=== PATIENT | female | born 1960 | race Hispanic/Latino ===

== ENCOUNTER 2018-02-23 12:15 | Emergency (ER) | payer OTHER ==
[2018-02-23] MEDS ORDERED: MEPERIDINE HCL 50 MG/ML AMP ONE (15:33)
[2018-02-23] MEDS ORDERED: ONDANSETRON 4 MG/2 ML VIAL ONE (15:33)
[2018-02-23 15:54] LABS: Potassium 4.4 mmol/L (3.5-5.1)
[2018-02-23 15:59] LABS: Absolute Lymphocytes (CBC) 2.7 K/uL (0.7-4.9); Absolute Monocytes 0.4 K/uL (0.1-1.3); Absolute Neutrophil 4.9 K/uL (1.8-8.0); Basophils % 0.7 % (0-1.3); Lymphocytes % 33.4 % (15.3-44.8); MCV 85.8 fL (80-100); MPV 8.3 fL (7.6-11.3); Monocytes % 4.6 % (3.3-12.3); RBC Red Blood Cell Count 5.37 M/uL (3.86-4.86)
--- NOTE | 2018-02-23 16:42 | RAD REPORT ---
EXAM DESCRIPTION: CTAbdomen Pelvis W Contrast - 02/23/2018 4:29 pm CLINICAL HISTORY: Abdominal pain. IV contrast only, LLQ pain and flank pain to hip;Abd pain COMPARISON: Abdomen Pelvis W Contrast dated 07/11/2016 TECHNIQUE: Biphasic CT imaging of the abdomen and pelvis was performed with 100 ml non-ionic IV cont rast. All CT scans are performed using dose optimization technique as appropriate and may include automated exposure control or mA/KV adjustment according to patient size. FINDINGS: The lung bases are clear. Diffuse fatty liver is present. Cholecystectomy clips are seen. The spleen, pancreas, adrenal glands and kidneys are within normal limits. No bowel obstruction, free air, free fluid or abscess. Moderate stool is present in the colon. The ap pendix is normal. No evidence of significant lymphadenopathy. No suspicious bony findings. IMPRESSION: No acute intra-abdominal or pelvic finding.
--- NOTE | 2018-02-23 17:28 | ER ---
Nurse's Notes [facility] Name: Cesia Rai Age: 58 yrs Sex: Female : 1960 Arrival Date: 02/23/2018 Time: 12:16 Bed 17 Private MD: Lobito Angel V Diagnosis: Pain in left hip Presentation: 02/23 12:29 Presenting complaint: Patient states: Left sided low back pain that radiates to left hb leg x 3 days. Hx sciatica, takes Percocet, feels like this pain is different than her typical pain. Denies recent injury. Transition of care: patient was not received from another setting of care. Onset of symptoms is unknown. Risk Assessment: Do you want to hurt yourself or someone else? Patient reports no desire to harm self or others. 12:29 Method Of Arrival: Ambulatory 12:29 Acuity: LUIS 4 hb 14:59 Initial Sepsis Screen: Does the patient meet any 2 criteria? No. Patient's initial hj sepsis screen is negative. Does the patient have a suspected source of infection? No. Patient's initial sepsis screen is negative. Care prior to arrival: None. Triage Assessment: 14:58 General: Appears in no apparent distress. uncomfortable, Behavior is calm, cooperative, hj appropriate for age. Pain: Complains of pain in back and left leg. Historical: - Allergies: 12:32 GABAPENTIN; hb 12:32 Morphine; hb - PMHx: 12:32 Diabetes - NIDDM; necrotizing fascitis; neuropathy; Seizures; hb - Immunization history:: Adult Immunizations up to date. - Social history:: Smoking status: Patient/guardian denies using tobacco. - Ebola Screening: : No symptoms or risks identified at this time. - Family history:: not pertinent. - Hospitalizations: : No recent hospitalization is reported. Screenin:58 Abuse screen: Denies threats or abuse. Denies injuries from another. Nutritional hj screening: No deficits noted. Tuberculosis screening: No symptoms or risk factors identified. Fall Risk None identified. Assessment: 15:31 Reassessment: Patient and/or family updated on plan of care and expected duration. Pain hj level reassessed. Patient is alert, oriented x 3, equal unlabored respirations, skin warm/dry/pink. see triage for assessment;. 16:04 Reassessment: Patient and/or family updated on plan of care and expected duration. Pain hj level reassessed. Patient is alert, oriented x 3, equal unlabored respirations, skin warm/dry/pink. Patient states feeling better. Patient states symptoms have improved. 17:21 Reassessment: Patient and/or family updated on plan of care and expected duration. Pain hj level reassessed. Patient is alert, oriented x 3, equal unlabored respirations, skin warm/dry/pink. complaints of pain, MD notified; awaiting orders;. Vital Signs: 12:32 BP 134 / 78; Pulse 78; Resp 16; Temp 98.1; Pulse Ox 100% on R/A; Pain 10/10; hb 14:59 BP 133 / 87; Pulse 65; Resp 18; Pulse Ox 97% on R/A; hj 16:33 BP 130 / 79; Pulse 75; Resp 18; Pulse Ox 100% on R/A; hj 17:21 BP 128 / 78; Pulse 76; Resp 18; Pulse Ox 100% on R/A; hj ED Course: 12:16 Patient arrived in ED. sb2 12:17 Lobito Angel MD is Private Physician. sb2 12:31 Triage completed. hb 12:32 Arm band placed on right wrist. hb 14:53 Devan Motta, RN is Primary Nurse. hj 14:57 Sanjay Dueñas MD is Attending Physician. rn 14:59 Patient has correct armband on for positive identification. Placed in gown. Bed in low hj position. Call light in reach. Side rails up X 1. Adult w/ patient. 15:15 Initial lab(s) drawn, by me, sent to lab. Inserted saline lock: 22 gauge in left hj forearm, using aseptic technique. Blood collected. 15:21 Radiology exam delayed due to lab results not completed at this time. (BUN/Creatinine). sw 16:[address] via wheelchair. nj 16:29 CT completed. Patient tolerated procedure well. Patient moved back from CT. nj 16:29 CT Abd/Pelvis - W/Contrast In Process Unspecified. EDMS 17:27 Lobito Angel MD is Referral Physician. rn 17:54 No provider procedures requiring assistance completed. IV discontinued, intact, ss bleeding controlled, No redness/swelling at site. Pressure dressing applied. Administered Medications: 15:15 Drug: Zofran 4 mg Route: IVP; Site: left forearm; hj 16:28 Follow up: Response: No adverse reaction hj 15:15 Drug: Demerol 50 mg Route: IVP; Site: left forearm; hj 16:28 Follow up: Response: No adverse reaction; Pain is decreased hj Outcome: 17:27 Discharge ordered by . rn 17:54 Discharged to home ambulatory, with family. ss 17:54 Condition: good 17:54 Discharge instructions given to patient, family, Instructed on discharge instructions, follow up and referral plans. medication usage, Demonstrated understanding of instructions, follow-up care, medications. 17:55 Patient left the ED. ss Signatures: Dispatcher [employer] EDMS Sanjay Dueñas MD MD rn Smirch, Shelby, RN RN ss Warren, Shannon sw Joaquin, Henry, RN RN hj Baxter, Heather, RN RN hb Jordan, Nathan nj Billeau, Sheri sb2 Corrections: (The following items were deleted from the chart) 12:33 12:29 Acuity: LUIS 3 hb hb
--- NOTE | 2018-02-23 17:28 | EDPHYS ---
Physician Documentation [facility] Name: Cesia Rai Age: 58 yrs Sex: Female : 1960 Arrival Date: 02/23/2018 Time: 12:16 Bed 17 Private MD: Lobito Angel V ED Physician Sanjay Dueñas HPI: 02/23 15:55 This 58 yrs old Female presents to ER via Ambulatory with complaints of Low rn Back Pain. 17:20 This 58 yrs old Female presents to ER via Ambulatory with complaints of left rn hip pain. 17:20 The patient presents with pain that is chronic, with no known mechanism of injury. rn 17:22 The patient or guardian reports pain. sustained from unknown reason, There is no rn obvious deformity, The patient is able to self ambulate. The patient is able to bear their full body weight. The patient's discomfort radiates to the abdomen. Onset: The symptoms/episode began/occurred 2 week(s) ago. Modifying factors: The symptoms are alleviated by nothing, the symptoms are aggravated by any movement, weight bearing. Severity of symptoms: At their worst the symptoms were moderate, in the emergency department the symptoms have improved. The patient has experienced similar episodes in the past. Has had left hip/leg pain since previous hip surgery > 1 year ago, worse pain over last 2 weeks, no trauma, no fever, no skin changes, no rashes, reports sometimes has pain with walking. Has had neg MRI lumbar spine 2 weeks ago, has been evaluated for this pain by pcp. . Historical: - Allergies: 12:32 GABAPENTIN; hb 12:32 Morphine; hb - PMHx: 12:32 Diabetes - NIDDM; necrotizing fascitis; neuropathy; Seizures; hb - Immunization history:: Adult Immunizations up to date. - Social history:: Smoking status: Patient/guardian denies using tobacco. - Ebola Screening: : No symptoms or risks identified at this time. - Family history:: not pertinent. - Hospitalizations: : No recent hospitalization is reported. ROS: 17:22 Constitutional: Negative for fever, chills, and weight loss, Eyes: Negative for injury, rn pain, redness, and discharge, Abdomen/GI: Negative for abdominal pain, vomiting, diarrhea, and constipation, Back: Negative for injury and pain, MS/Extremity: Negative for injury and deformity, Skin: Negative for injury, rash, and discoloration, Neuro: Negative for headache, weakness, numbness, tingling, and seizure. Exam: 17:22 Constitutional: This is a well developed, well nourished patient who is awake, alert, rn and in no acute distress. Head/Face: Normocephalic, atraumatic. Abdomen/GI: soft, non-tender Skin: Warm, dry with normal turgor. Normal color with no rashes, no lesions, and no evidence of cellulitis. MS/ Extremity: Pulses equal, no cyanosis. Neurovascular intact. Full, normal range of motion. Equal circumference. Neuro: Awake and alert, Motor strength 5/5 in all extremities. Sensory grossly intact. Vital Signs: 12:32 BP 134 / 78; Pulse 78; Resp 16; Temp 98.1; Pulse Ox 100% on R/A; Pain 10/10; hb 14:59 BP 133 / 87; Pulse 65; Resp 18; Pulse Ox 97% on R/A; hj 16:33 BP 130 / 79; Pulse 75; Resp 18; Pulse Ox 100% on R/A; hj 17:21 BP 128 / 78; Pulse 76; Resp 18; Pulse Ox 100% on R/A; hj MDM: 14:57 Patient medically screened. rn 17:22 Differential diagnosis: bursitis, arthritis, strain. Data reviewed: vital signs, nurses rn notes, lab test result(s), radiologic studies, CT scan, and as a result, I will discharge patient. Counseling: I had a detailed discussion with the patient and/or guardian regarding: the historical points, exam findings, and any diagnostic results supporting the discharge/admit diagnosis, lab results, radiology results, the need for outpatient follow up, to return to the emergency department if symptoms worsen or persist or if there are any questions or concerns that arise at home. Response to treatment: the patient's symptoms have mildly improved after treatment, and as a result, I will discharge patient. Special discussion: I discussed with the patient/guardian in detail that at this point there is no indication for admission to the hospital. It is understood, however, that if the symptoms persist or worsen the patient needs to return immediately for re-evaluation. Based on the history and exam findings, there is no indication for further emergent testing or inpatient evaluation. I discussed with the patient/guardian the need to see the back specialist for further evaluation of the symptoms. I discussed with the patient/guardian the need to see the painter hand for further evaluation of the symptoms. 02/23 15:13 Order name: Basic Metabolic Panel; Complete Time: 16:36 rn 02/23 15:13 Order name: CBC with Diff; Complete Time: 16:36 rn 02/23 15:13 Order name: Creatinine for Radiology; Complete Time: 16:36 rn 02/23 15:13 Order name: CT Abd/Pelvis - W/Contrast; Complete Time: 16:52 rn 02/23 15:13 Order name: IV Saline Lock; Complete Time: 15:31 rn 02/23 15:13 Order name: Labs collected and sent; Complete Time: 15:31 rn Administered Medications: 15:15 Drug: Zofran 4 mg Route: IVP; Site: left forearm; hj 16:28 Follow up: Response: No adverse reaction 15:15 Drug: Demerol 50 mg Route: IVP; Site: left forearm; hj 16:28 Follow up: Response: No adverse reaction; Pain is decreased Disposition: 02/23/18 17:27 Discharged to Home. Impression: Pain in left hip. - Condition is Stable. - Discharge Instructions: Musculoskeletal Pain, Pain Without a Known Cause, Hip Pain. - Medication Reconciliation Form, Thank You Letter, Antibiotic Education, Prescription Opioid Use form. - Follow up: Lobito Angel MD; When: As needed; Reason: Recheck today's complaints, Re-evaluation by your physician. - Problem is new. - Symptoms have improved. Signatures: Dispatcher [employer] EDLA Sanjay Dueñas MD MD rn Smirch, Shelby, RN RN Devan Motta RN RN Donna Clemente RN RN Corrections: (The following items were deleted from the chart) 17:55 17:27 02/23/2018 17:27 Discharged to Home. Impression: Pain in left hip. Condition is ss Stable. Forms are Medication Reconciliation Form, Thank You Letter, Antibiotic Education, Prescription Opioid Use. Follow up: Lobito Angel; When: As needed; Reason: Recheck today's complaints, Re-evaluation by your physician. Problem is new. Symptoms have improved. rn
[2018-02-23 18:59] VITALS: TEMP 98.1
[2018-02-23 19:01] VITALS: O2SAT 100
[2018-02-23 19:02] VITALS: BP 128/78
== END 2018-02-23 17:55 | disposition home or self-care (01) ==
LOC: ER 12:15
DX: M25.552 Pain in left hip (principal); Z88.5 Allergy status to narcotic agent; Z88.8 Allergy status to other drugs, medicaments and biological substances
CPT/HCPCS: 36415; 74177; 80048; 85025; 96374; 96375; 99284; J2175; J2405; Q9967

== ENCOUNTER 2018-08-17 16:34 | Observation (INO) | payer OTHER ==
--- OUTSIDE RECORDS SUMMARY | 2018-08-17 16:36 | XMS REPORT | Clinical Summary ---
:1960 Author Organization [facility] Address [address] [place] [address] Care Team Providers Name Role Phone Lobito Angel MD Primary Care Provider Allergies Active Allergy Reactions Severity Noted Date Comments Gabapentin Palpitations Low 04/23/2018 Morphine Hives 04/23/2018 Medications Medication Sig Dispensed Refills Start Date End Date Status baclofen (LIORESAL) 10 MG 0 02/20/2018 Active tablet cyclobenzaprine 0 08/14/2017 Active (FLEXERIL) 10 mg tablet diclofenac (VOLTAREN) 75 Take 75 mg by 0 03/13/2018 Active MG EC tablet mouth. fentaNYL (DURAGESIC) 25 0 01/31/2018 Active mcg/hr fentaNYL (DURAGESIC) 50 0 08/14/2017 Active mcg/hr NOVOLIN 70/30 U-100 0 03/11/2018 Active INSULIN 100 unit/mL (70-30) injection levothyroxine (SYNTHROID, 0 05/31/2017 Active LEVOXYL) 150 mcg tablet promethazine (PHENERGAN) 0 07/09/2017 Active 25 MG tablet rosuvastatin (CRESTOR) 5 Take 5 mg by 0 Active MG tablet mouth. oxyCODone-acetaminophen Take 1 tablet 0 Active (PERCOCET) 10-325 mg per by mouth. tablet Hospital, Clinic, or Other Ordered Dose Route Frequency Start Date End Date Status Facility Administered Medication methylPREDNISolone acetate 80 mg IAtc once 04/23/2018 Active (DEPO-MEDROL) injection 80 mgIndications: Trochanteric bursitis of right hip Active Problems Problem Noted Date Meralgia paresthetica of left side 05/08/2018 Resolved Problems Problem Noted Date Resolved Date Trochanteric bursitis of right hip 04/23/2018 05/08/2018 Encounters Date Type Specialty Care Team Description 05/08/2018 Office Visit Sports Medicine Jd Miller Meralgia paresthetica of left side (Primary Dx); MD Courtney Trochanteric bursitis of left hip 05/08/2018 Orders Only Sports Medicine ProviderWest MD 04/23/2018 Hospital Encounter Radiology Conrad Reece MD 04/23/2018 Office Visit Orthopedic Surgery Conrad Reece Trochanteric bursitis MD Misael of right hip (Primary Dx) 04/20/2018 Orders Only Orthopedic Surgery Cami Crowell, Pain of left hip MA joint (Primary Dx) after 08/16/2017 Family History Medical History Relation Name Comments Diabetes Father Camilo Relation Name Status Comments Father Camilo Social History Tobacco Use Types Packs/Day Years Used Date Former Smoker Smokeless Tobacco: Never Used Alcohol Use Drinks/Week oz/Week Comments No Sex Assigned at Date Recorded Not on file Job Start Date Occupation Industry Not on file Not on file Not on file Travel History Travel Start Travel End No recent travel history available. Last Filed Vital Signs Vital Sign Reading Time Taken Blood Pressure - - Pulse - - Temperature - - Respiratory Rate - - Oxygen Saturation - - Inhaled Oxygen Concentration - - Weight 112 kg (247 lb) 04/23/2018 2:06 PM NEWS REPORTER Height 154.9 cm (5' 1") 04/23/2018 2:06 PM NEWS REPORTER Body Mass Index 46.67 04/23/2018 2:06 PM NEWS REPORTER Plan of Treatment Health Maintenance Due Date Last Done Comments CERVICAL CANCER SCREENING 1983 BREAST CANCER SCREENING 02/14/2012 COLON CANCER SCREENING 02/14/2012 SHINGLES VACCINES (#1) 02/14/2012 INFLUENZA VACCINE 12/24/2017 Procedures Procedure Name Priority Date/Time Associated Diagnosis Comments MRI LOWER EXTREMITY Routine 05/08/2018 JOINT WO CONTRAST LEFT XR HIP 2-3 VIEWS LEFT Routine 04/23/2018 2:12 Pain of left hip Results for this PM NEWS REPORTER joint procedure are in the results section. [place] ARTHROCENTESIS Routine 04/23/2018 2:00 Trochanteric Results for this ASPIR&/INJ MAJOR PM NEWS REPORTER bursitis of right procedure are in JT/BURSA W/O US hip the results section. MRI LOWER EXTREMITY Routine 03/04/2018 11:55 Results for this EXTERNAL STUDY AM CDT procedure are in the results section. after 08/16/2017 Results MRI Lower Extremity Joint Wo Contrast Left (05/08/2018) Narrative Performed At XR Hip 2-3 View Left (04/23/2018 2:12 PM NEWS REPORTER) Narrative Performed At No evidence of degenerative changes. Joint space is well maintained. There RADIANT are no fractures or lesions present. Performing Organization Address [facility] Phone Number [facility] [address] [place] [address] Large Joint Arthrocentesis: hip, L greater trochanteric bursa (04/23/2018 2:00 PM NEWS REPORTER) Narrative Performed At Conrad Reece MD 04/24/20189:25 AM Large Joint Arthrocentesis: hip, L greater trochanteric bursa Consent given by: patient Site marked: site marked Timeout: Immediately prior to procedure a time out was called to verify the correct patient, procedure, equipment, passport support manager and site/side marked as required Supporting Documentation Indications: pain Procedure Details Preparation: Patient was prepped and draped in the usual sterile fashion Ultrasound guided: no Platelet Rich Plasma Used: no PRP Used Location: hip - L greater trochanteric bursa Left side: Needle size: 20 G Approach: lateral Left hip medications administered: 80 mg methylPREDNISolone acetate 40 mg/mL Patient tolerance: patient tolerated the procedure well with no immediate complications MRI Lower Extremity External Study (03/04/2018 11:55 AM CDT) Narrative Performed At This exam was not acquired at a [facility] facility and has not been RADIANT interpreted by a [facility] Provider.The exam was imported into our imaging system for comparisons purposes. Performing Organization Address [facility] Phone Number [facility] [address] [place] [address] after 08/16/2017 Insurance Payer Benefit Plan / Group Subscriber ID Type Phone Address [facility]ak[facility] EXCHANGE xxxxxxxxxxxx [employer] Advance Directives Patient has advance care planning documents on file. For more information, please contact:Tanmay Hassan[address] [place] [address]
--- NOTE | 2018-08-17 17:26 | EKG ---
Test Date: 2018-08-17 Test Time: 16:54:01 Supervisor Dials: MAYA MEASUREMENT RESULTS: Intervals: Rate: 68 MD: 154 QRSD: 72 QT: 398 QTc: 423 Buckner: P: 40 MD: 154 QRS: -9 T: 16 INTERPRETIVE STATEMENTS: Normal sinus rhythm Cannot rule out Anterior infarct, age undetermined Abnormal ECG Compared to ECG 07/05/2017 17:01:59 No significant changes Electronically Signed On 08-17-18 17:25:30 CDT by Jaylan Sykes
[2018-08-17 17:30] LABS: Absolute Lymphocytes (CBC) 1.7 K/uL (0.7-4.9); Absolute Monocytes 0.5 K/uL (0.1-1.3); Absolute Neutrophil 6.8 K/uL (1.8-8.0); Basophils % 0.5 % (0-1.3); Eosinophils % 0.8 % (0-4.4); Lymphocytes % 18.4 % (15.3-44.8); MPV 8.2 fL (7.6-11.3); Monocytes % 5.5 % (3.3-12.3); Protime INR 0.95; RBC Red Blood Cell Count 4.56 M/uL (3.86-4.86)
--- NOTE | 2018-08-17 17:43 | RAD REPORT ---
EXAM DESCRIPTION: RAD - Chest Single View - 08/17/2018 5:36 pm CLINICAL HISTORY: CHEST PAIN Chest pain. COMPARISON: Chest Single View dated 07/05/2017; Chest Pa And Lat (2 Views) dated 11/21/2016; Chest Pa And Lat (2 Views) dated 07/11/2016; Chest Single View dated 04/26/2016 FINDINGS: Portable technique limits examination quality. The lungs are grossly clear. The heart is upper limit of normal in size. No displaced fractures. IMPRESSION: No acute intrathoracic process suspected.
[2018-08-17 17:51] LABS: ALT/SGPT 26 U/L (12-78); AST/SGOT 21 U/L (15-37); Alkaline Phosphatase 77 U/L (45-117); BUN Blood Urea Nitrogen 14 mg/dL (7-18); Bicarbonate 30 mmol/L (21-32); Bilirubin Direct < 0.1 mg/dL (0-0.2); Bilirubin Total 0.2 mg/dL (0.2-1.0); Glucose Level 289 mg/dL (74-106); NT PRO-BNP 254 pg/mL (<125); Potassium 3.9 mmol/L (3.5-5.1); Protein, Total 6.4 g/dL (6.4-8.2); Sodium Level 140 mmol/L (136-145); Troponin (Emerg Dept Use Only) < 0.02 ng/mL (0.0-0.045)
--- NOTE | 2018-08-17 17:55 | ER ---
Nurse's Notes [facility] Name: Cesia Rai Age: 58 yrs Sex: Female : 1960 Arrival Date: 08/17/2018 Time: 16:36 Bed 19 Private MD: Lobito Angel V Diagnosis: Other chest pain;Type 2 diabetes mellitus;Edema, unspecified;Unspecified combined systolic (congestive) and diastolic (congestive) heart failure Presentation: 08/17 16:47 Presenting complaint: Patient states: chest pain radiating to right arm and left upper aa5 back since today. Pt also reports SOB and swelling to all 4 extremities. Transition of care: patient was not received from another setting of care. Onset of symptoms was August 17, 2018. Risk Assessment: Do you want to hurt yourself or someone else? Patient reports no desire to harm self or others. Initial Sepsis Screen: Does the patient meet any 2 criteria? No. Patient's initial sepsis screen is negative. Does the patient have a suspected source of infection? No. Patient's initial sepsis screen is negative. Care prior to arrival: None. 16:47 Method Of Arrival: Ambulatory aa5 16:47 Acuity: LUIS 3 aa5 Triage Assessment: 16:47 General: Appears in no apparent distress. uncomfortable, obese, Behavior is calm, hj cooperative, appropriate for age. Pain: Complains of pain in left breast and left lateral anterior chest and mid-sternal area and chest. EENT: No signs and/or symptoms were reported regarding the EENT system. Neuro: Level of Consciousness is awake, alert, obeys commands, Oriented to person, place, time, Appropriate for age. Cardiovascular: Capillary refill < 3 seconds Patient's skin is warm and dry. Respiratory: Airway is patent Respiratory effort is even, unlabored, Respiratory pattern is regular, symmetrical. GI: No signs and/or symptoms were reported involving the gastrointestinal system. : No signs and/or symptoms were reported regarding the genitourinary system. Derm: No signs and/or symptoms reported regarding the dermatologic system. Musculoskeletal: No signs and/or symptoms reported regarding the musculoskeletal system. Historical: - Allergies: 16:48 GABAPENTIN; aa5 16:48 Morphine; aa5 - PMHx: 16:48 Diabetes - NIDDM; necrotizing fascitis; neuropathy; Seizures; aa5 - Immunization history:: Flu vaccine status is unknown. - Social history:: Smoking status: Patient/guardian denies using tobacco. - Ebola Screening: : No symptoms or risks identified at this time. - Family history:: not pertinent. Screenin:47 Abuse screen: Denies threats or abuse. Denies injuries from another. Nutritional hj screening: No deficits noted. Tuberculosis screening: No symptoms or risk factors identified. Fall Risk None identified. Assessment: 16:47 Pain: Pain does not radiate. Pain began suddenly. hj 17:30 Reassessment: Patient and/or family updated on plan of care and expected duration. Pain hj level reassessed. Patient is alert, oriented x 3, equal unlabored respirations, skin warm/dry/pink. awaiting results and POC;. 18:20 Reassessment: Patient and/or family updated on plan of care and expected duration. Pain hj level reassessed. Patient is alert, oriented x 3, equal unlabored respirations, skin warm/dry/pink. for admit; pending room placement;. 19:25 Reassessment: Patient appears in no apparent distress at this time. Patient and/or ed1 family updated on plan of care and expected duration. Pain level reassessed. Patient is alert, oriented x 3, equal unlabored respirations, skin warm/dry/pink. Pain: Complains of pain in anterior aspect of left upper chest and left breast Pain radiates to back Pain currently is 7 out of 10 on a pain scale. Quality of pain is described as sharp, Pain began 1 day ago. Is intermittent. Neuro: Level of Consciousness is awake, alert, obeys commands, Oriented to person, place, time, situation. Respiratory: Airway is patent Respiratory effort is even, unlabored, Respiratory pattern is regular, symmetrical, Breath sounds are clear bilaterally. Vital Signs: 16:48 BP 142 / 82; Pulse 65; Resp 16 S; Temp 98.2(TE); Pulse Ox 96% on R/A; Weight 115.67 kg aa5 (R); Height 5 ft. 1 in. (154.94 cm) (R); Pain 8/10; 17:30 BP 140 / 80; Pulse 66; Resp 18; Pulse Ox 100% on R/A; hj 18:21 BP 138 / 78; Pulse 67; Resp 18; Pulse Ox 100% on R/A; hj 18:36 BP 101 / 48; Pulse 60; Resp 18; Pulse Ox 98% on R/A; hj 19:25 BP 113 / 62; Pulse 65; Resp 14; Temp 98.5(O); Pulse Ox 99% on R/A; Pain 7/10; ed1 16:48 Body Mass Index 48.18 (115.67 kg, 154.94 cm) aa5 ED Course: 16:36 Patient arrived in ED. mr 16:37 Lobito Angel MD is Private Physician. mr 16:47 cruise counselor on. Pulse ox on. NIBP on. hj 16:47 Patient has correct armband on for positive identification. Placed in gown. Bed in low hj position. Call light in reach. Side rails up X 1. Adult w/ patient. 16:47 Patient maintains SpO2 saturation greater than 95% on room air. hj 16:48 Triage completed. aa5 16:48 Arm band placed on. aa5 16:52 Devan Motta RN is Primary Nurse. hj 17:03 Jayson Durán MD is Attending Physician. deloris 17:03 Missed attempt(s): 22 gauge forearm. Bleeding controlled, band aid applied, catheter pc1 tip intact. 17:04 EKG done, by earth science laboratory technician. reviewed by Jayson Durán MD. 3 17:10 Initial lab(s) drawn, by la, sent to lab. Inserted saline lock: 22 gauge in right hj antecubital area, using aseptic technique. Blood collected. 17:37 XRAY Chest (1 view) In Process Unspecified. EDMS 17:54 Lobito Angel MD is Hospitalizing Provider. deloris 18:19 US Extremity Venous W Compression Mic In Process Unspecified. EDMS 18:21 CT Chest For PE Angio In Process Unspecified. EDMS 18:27 Patient moved back from radiology. hj 18:55 Primary Nurse role handed off by Devan Motta, LOWELL ed1 18:55 Nallely Harris, LOWELL is Primary Nurse. ed1 20:56 No provider procedures requiring assistance completed. Patient admitted, IV remains in ed1 place. intact, No redness/swelling at site. Administered Medications: 17:54 Drug: Aspirin 162 mg Route: PO; hj 18:05 Follow up: Response: No adverse reaction 17:54 Drug: Lovenox 100 mg Route: Sub-Q; Site: right lower abdomen; hj 18:06 Follow up: Response: No adverse reaction hj 17:54 Drug: Dilaudid 1 mg Route: IVP; Site: right antecubital; hj 18:06 Follow up: Response: No adverse reaction; Pain is decreased hj 17:54 Drug: Zofran 4 mg Route: IVP; Site: right antecubital; hj 18:06 Follow up: Response: No adverse reaction; Nausea is decreased hj 19:24 Drug: Lasix 20 mg Route: IVP; Site: right antecubital; ed1 20:38 Follow up: Response: No adverse reaction; Void X1 ed1 19:24 Drug: Potassium Effervescent Tablet 25 mEq Route: PO; ed1 20:39 Follow up: Response: No adverse reaction ed1 20:40 Drug: Dilaudid 0.5 mg Route: IVP; Site: right antecubital; ed1 20:55 Follow up: Response: No adverse reaction; Pain is decreased ed1 Intake: Outcome: 17:55 Decision to Hospitalize by Provider. deloris 20:56 Admitted to Tele accompanied by tech, family with patient, via wheelchair, room 417, ed1 with chart, Report called to LOWELL Bliss 20:56 Condition: stable 20:56 Discharge instructions given to patient, Instructed on the need for admit, Demonstrated understanding of instructions. 20:57 Patient left the ED. ed1 Signatures: Dispatcher [employer] Jayson Gambino MD MD cha Rivera, Montserrat mr LopezArabella RN RN aa5 Nallely Harris RN RN ed1 Devan Motta RN RN hj Montes, Shakira 3 Joshua Rouse pc1
--- NOTE | 2018-08-17 17:56 | EDPHYS ---
Physician Documentation [facility] Name: Cesia Rai Age: 58 yrs Sex: Female : 1960 Arrival Date: 08/17/2018 Time: 16:36 Bed 19 Private MD: Lobito Angel V ED Physician Jayson Durán HPI: 08/17 17:50 This 58 yrs old Female presents to ER via Ambulatory with complaints of Chest deloris Pain, Shortness Of Breath, Feet Swelling. 17:50 The patient or guardian reports chest pain that is located primarily in the substernal deloris area. Onset: 1 day(s) ago. The pain radiates to chest, right arm and left arm. Associated signs and symptoms: Pertinent positives: shortness of breath. The chest pain is described as a heaviness, sharp, squeezing. Duration: The patient or guardian reports multiple episodes, that wax and wane. Modifying factors: The symptoms are alleviated by application of supplemental oxygen, remaining still, the symptoms are aggravated by deep breath. The patient has not experienced similar symptoms in the past. Historical: - Allergies: 16:48 GABAPENTIN; aa5 16:48 Morphine; aa5 - PMHx: 16:48 Diabetes - NIDDM; necrotizing fascitis; neuropathy; Seizures; aa5 - Immunization history:: Flu vaccine status is unknown. - Social history:: Smoking status: Patient/guardian denies using tobacco. - Ebola Screening: : No symptoms or risks identified at this time. - Family history:: not pertinent. ROS: 17:50 Constitutional: Negative for fever, chills, and weight loss, Eyes: Negative for injury, deloris pain, redness, and discharge, ENT: Negative for injury, pain, and discharge, Neck: Negative for injury, pain, and swelling, Respiratory: Negative for shortness of breath, cough, wheezing, and pleuritic chest pain, Abdomen/GI: Negative for abdominal pain, nausea, vomiting, diarrhea, and constipation, Back: Negative for injury and pain, : Negative for injury, bleeding, discharge, and swelling, MS/Extremity: Negative for injury and deformity, Skin: Negative for injury, rash, and discoloration, Neuro: Negative for headache, weakness, numbness, tingling, and seizure, Psych: Negative for depression, anxiety, suicide ideation, homicidal ideation, and hallucinations, Allergy/Immunology: Negative for hives, rash, and allergies, Endocrine: Negative for neck swelling, polydipsia, polyuria, polyphagia, and marked weight changes, Hematologic/Lymphatic: Negative for swollen nodes, abnormal bleeding, and unusual bruising. 17:50 Cardiovascular: Positive for chest pain. 17:50 MS/extremity: Positive for swelling, of the right leg and left leg. Exam: 17:50 Constitutional: This is a well developed, well nourished patient who is awake, alert, deloris and in no acute distress. Head/Face: Normocephalic, atraumatic. Eyes: Pupils equal round and reactive to light, extra-ocular motions intact. Lids and lashes normal. Conjunctiva and sclera are non-icteric and not injected. Cornea within normal limits. Periorbital areas with no swelling, redness, or edema. ENT: Nares patent. No nasal discharge, no septal abnormalities noted. Tympanic membranes are normal and external auditory canals are clear. Oropharynx with no redness, swelling, or masses, exudates, or evidence of obstruction, uvula midline. Mucous membranes moist. Neck: Trachea midline, no thyromegaly or masses palpated, and no cervical lymphadenopathy. Supple, full range of motion without nuchal rigidity, or vertebral point tenderness. No Meningismus. Cardiovascular: Regular rate and rhythm with a normal S1 and S2. No gallops, murmurs, or rubs. Normal PMI, no JVD. No pulse deficits. Respiratory: Lungs have equal breath sounds bilaterally, clear to auscultation and percussion. No rales, rhonchi or wheezes noted. No increased work of breathing, no retractions or nasal flaring. Abdomen/GI: Soft, non-tender, with normal bowel sounds. No distension or tympany. No guarding or rebound. No evidence of tenderness throughout. Back: No spinal tenderness. No costovertebral tenderness. Full range of motion. Skin: Warm, dry with normal turgor. Normal color with no rashes, no lesions, and no evidence of cellulitis. Neuro: Awake and alert, GCS 15, oriented to person, place, time, and situation. Cranial nerves II-XII grossly intact. Motor strength 5/5 in all extremities. Sensory grossly intact. Cerebellar exam normal. Normal gait. Psych: Awake, alert, with orientation to person, place and time. Behavior, mood, and affect are within normal limits. 17:50 Chest/axilla: Inspection: no acute changes, Palpation: tenderness, that is mild, of the mid-sternal area, left lateral anterior chest and left breast, Axilla: are normal, no acute changes, Breasts: are normal, Lymph nodes: lymphadenopathy is not appreciated. 17:50 Musculoskeletal/extremity: Extremities: pain, swelling, ROM: full active range of motion, full passive range of motion, Circulation is intact in all extremities. Compartment Syndrome exam of affected extremity: is normal. DVT Exam: no pain, no tenderness, negative Homans' sign noted on exam, no appreciated bluish discoloration, no erythema, no increased warmth, swelling. Vital Signs: 16:48 BP 142 / 82; Pulse 65; Resp 16 S; Temp 98.2(TE); Pulse Ox 96% on R/A; Weight 115.67 kg aa5 (R); Height 5 ft. 1 in. (154.94 cm) (R); Pain 8/10; 17:30 BP 140 / 80; Pulse 66; Resp 18; Pulse Ox 100% on R/A; hj 18:21 BP 138 / 78; Pulse 67; Resp 18; Pulse Ox 100% on R/A; hj 18:36 BP 101 / 48; Pulse 60; Resp 18; Pulse Ox 98% on R/A; hj 19:25 BP 113 / 62; Pulse 65; Resp 14; Temp 98.5(O); Pulse Ox 99% on R/A; Pain 7/10; ed1 16:48 Body Mass Index 48.18 (115.67 kg, 154.94 cm) aa5 MDM: 17:03 Patient medically screened. [facility] 17:53 Data reviewed: vital signs, nurses notes, lab test result(s), EKG, radiologic studies, [facility] CT scan, plain films. 08/17 17:04 Order name: Basic Metabolic Panel; Complete Time: 18:17 [facility] 08/17 17:04 Order name: CBC with Diff; Complete Time: 18: [facility] 08/17 17:04 Order name: LFT's; Complete Time: 18:17 [facility] 08/17 17:04 Order name: Magnesium; Complete Time: 18: [facility] 08/17 17:04 Order name: NT PRO-BNP; Complete Time: 18:17 08/17 17:04 Order name: PT-INR; Complete Time: 18:17 08/17 17:04 Order name: Troponin (emerg Dept Use Only); Complete Time: 18:17 08/17 17:04 Order name: XRAY Chest (1 view); Complete Time: 18:17 08/17 17:50 Order name: CT Chest For PE Angio; Complete Time: 18:59 [facility] 08/17 17:50 Order name: US Extremity Venous W Compression Mic; Complete Time: 18:59 [facility] 08/17 17:04 Order name: EKG; Complete Time: 17:04 08/17 17:04 Order name: Cardiac monitoring; Complete Time: 17:14 08/17 17:04 Order name: EKG - Nurse/Tech; Complete Time: 17:14 08/17 17:04 Order name: IV Saline Lock; Complete Time: 17:14 08/17 17:04 Order name: Labs collected and sent; Complete Time: 17:14 08/17 17:04 Order name: O2 Per Protocol; Complete Time: 17:14 08/17 17:04 Order name: O2 Sat Monitoring; Complete Time: 17:14 08/17 18:00 Order name: CONS Physician Consult; Complete Time: 19:04 EDMS Administered Medications: 17:54 Drug: Aspirin 162 mg Route: PO; hj 18:05 Follow up: Response: No adverse reaction hj 17:54 Drug: Lovenox 100 mg Route: Sub-Q; Site: right lower abdomen; hj 18:06 Follow up: Response: No adverse reaction hj 17:54 Drug: Dilaudid 1 mg Route: IVP; Site: right antecubital; hj 18:06 Follow up: Response: No adverse reaction; Pain is decreased hj 17:54 Drug: Zofran 4 mg Route: IVP; Site: right antecubital; hj 18:06 Follow up: Response: No adverse reaction; Nausea is decreased hj 19:24 Drug: Lasix 20 mg Route: IVP; Site: right antecubital; ed1 20:38 Follow up: Response: No adverse reaction; Void X1 ed1 19:24 Drug: Potassium Effervescent Tablet 25 mEq Route: PO; ed1 20:39 Follow up: Response: No adverse reaction ed1 20:40 Drug: Dilaudid 0.5 mg Route: IVP; Site: right antecubital; ed1 20:55 Follow up: Response: No adverse reaction; Pain is decreased ed1 Disposition: 08/17/18 17:55 Hospitalization ordered by Lobito Angel for Observation. Preliminary diagnosis are Other chest pain, Type 2 diabetes mellitus, Edema, unspecified, Unspecified combined systolic (congestive) and diastolic (congestive) heart failure. - Bed requested for Telemetry/MedSurg (observation). - Status is Observation. ed1 - Condition is Fair. - Problem is new. - Symptoms have improved. UTI on Admission? No Signatures: Dispatcher [employer] EDMS Aruna Watts Corey, MD MD cha Calderon, Audri RN RN aa5 Nallely Harris RN RN ed1 Devan Motta RN RN Corrections: (The following items were deleted from the chart) 17:55 17:55 Hospitalization Ordered by Lobito Angel MD for Observation. Preliminary diagnosis deloris is Other chest pain. Bed requested for Telemetry/MedSurg (observation). Status is Observation. Condition is Fair. Problem is new. Symptoms have improved. UTI on Admission? No. deloris 18:53 17:55 08/17/2018 17:55 Hospitalization Ordered by Lobito Angel MD for Observation. bd Preliminary diagnosis is Other chest pain; Type 2 diabetes mellitus; Edema, unspecified. Bed requested for Telemetry/MedSurg (observation). Status is Observation. Condition is Fair. Problem is new. Symptoms have improved. UTI on Admission? No. deloris 19:00 18:53 08/17/2018 17:55 Hospitalization Ordered by Lobito Angel MD for Observation. deloris Preliminary diagnosis is Other chest pain; Type 2 diabetes mellitus; Edema, unspecified. Bed requested for Telemetry/MedSurg (observation). Status is Observation. Condition is Fair. Problem is new. Symptoms have improved. UTI on Admission? No. bd 20:57 19:00 08/17/2018 17:55 Hospitalization Ordered by Lobito Angel MD for Observation. ed1 Preliminary diagnosis is Other chest pain; Type 2 diabetes mellitus; Edema, unspecified; Unspecified combined systolic (congestive) and diastolic (congestive) heart failure. Bed requested for Telemetry/MedSurg (observation). Status is Observation. Condition is Fair. Problem is new. Symptoms have improved. UTI on Admission? No. deloris
[2018-08-17] MEDS ORDERED: ONDANSETRON 4 MG/2 ML VIAL ONE (18:08)
[2018-08-17] MEDS ORDERED: ENOXAPARIN 100 MG/ML SYR SQ ONE (18:08)
[2018-08-17] MEDS ORDERED: HYDROMORPHONE HCL 1 MG/ML INJ ONE (18:08)
[2018-08-17] MEDS ORDERED: ASPIRIN 81 MG CHEWABLE TABLET ONE (18:08)
--- NOTE | 2018-08-17 18:25 | RAD REPORT ---
EXAM DESCRIPTION: US - Extrem Venous W Compress Mic - 08/17/2018 6:21 pm CLINICAL HISTORY: PAIN Bilateral leg edema and swelling. COMPARISON: Extremity Nonvascular Complete dated 06/10/2017 TECHNIQUE: Real-time sonographic interrogation of the left and right lower extremity deep venous sys tems was performed. FINDINGS: Normal compressibility, flow augmentation, phasic flow and spontaneous flow is identified in both the left and right lower extremity deep venous systems. IMPRESSION: No sonographic evidence of left or right lower extremity deep venous thrombosis.
--- NOTE | 2018-08-17 18:32 | RAD REPORT ---
EXAM DESCRIPTION: CT - Chest For Pe Angio - 08/17/2018 6:22 pm CLINICAL HISTORY: Chest pain. CHEST PAIN COMPARISON: No comparisons TECHNIQUE: CT angiogram of the pulmonary arteries was performed with MIP. All CT scans are performed using dose optimization technique as appropriate and may include automated exposure control or mA/KV adjustment according to patient size. FINDINGS: No evidence of pulmonary thromboembolism. No acute aortic finding demonstrated. The heart is mildly enlarged. Mild interstitial pulmonary edema. No significant pericardial or pleural fluid. No concerning bony finding. Cholecystectomy. IMPRESSION: No evidence of pulmonary thromboembolism. Mild interstitial pulmonary edema.
[2018-08-17] MEDS ORDERED: FUROSEMIDE 20 MG/ 2ML VIAL ONE (19:27)
[2018-08-17] MEDS ORDERED: POTASSIUM 25 MEQ EFFERV TAB ONE (19:27)
[2018-08-17] MEDS ORDERED: HYDROMORPHONE HCL 0.5 MG/0.5 ML INJ ONE (20:47)
[2018-08-17] MEDS: ENOXAPARIN 100 MG/ML SYR SQ SCH (22:13)
[2018-08-17] MEDS ORDERED: ONDANSETRON 4 MG/2 ML VIAL IV PRN (22:13)
[2018-08-17] MEDS ORDERED: GLUCAGON 1 MG/VIAL IM PRN (22:13)
[2018-08-17] MEDS ORDERED: D50W 25 GM/50 ML SYRINGE IV PRN (22:13)
[2018-08-17] MEDS ORDERED: ACETAMINOPHEN 325 MG TABLET PO PRN (22:13)
[2018-08-17 22:47] VITALS: BMI 48.7
[2018-08-17] MEDS: INSULIN -REGULAR HUMAN 50 UNIT/0.5 ML ML SQ SCH (23:34)
[2018-08-17] MEDS: HYDROMORPHONE HCL 0.5 MG/0.5 ML INJ IV PRN (23:34)
[2018-08-17] MEDS: FAMOTIDINE 20 MG/2 ML VIAL IV SCH (23:34)
[2018-08-18 02:26] VITALS: O2SAT 96
[2018-08-18 03:52] LABS: Absolute Lymphocytes (CBC) 2.4 K/uL (0.7-4.9); Absolute Monocytes 0.5 K/uL (0.1-1.3); Absolute Neutrophil 4.8 K/uL (1.8-8.0); Basophils % 0.4 % (0-1.3); Eosinophils % 1.4 % (0-4.4); Hematocrit 38.7 % (36.0-45.0); Lymphocytes % 30.4 % (15.3-44.8); MPV 8.4 fL (7.6-11.3); Monocytes % 6.2 % (3.3-12.3); RBC Red Blood Cell Count 4.38 M/uL (3.86-4.86)
[2018-08-18 03:59] LABS: Potassium 4.6 mmol/L (3.5-5.1)
[2018-08-18] MEDS: HYDROMORPHONE HCL 0.5 MG/0.5 ML INJ IV PRN ×2 (04:47→10:10)
[2018-08-18 05:03] LABS: Urine Appearance CLEAR; Urine Bilirubin NEGATIVE (NEG); Urine Blood NEGATIVE (NEG); Urine Color YELLOW; Urine Glucose 1+ (NEG); Urine Protein NEGATIVE (NEG); Urine Specific Gravity >=1.030 (1.005-1.030); Urine Urobilinogen 0.2 mg/dL (0.2-1.0)
[2018-08-18 05:06] LABS: Urine Microscopic Reflex NO UMIC
[2018-08-18] MEDS ORDERED: Oxycodone HCl/Acetaminophen 1 TAB TAB PO PRN (07:15)
[2018-08-18] MEDS ORDERED: PROMETHAZINE 25 MG TABLET PO PRN (07:15)
[2018-08-18] MEDS ORDERED: CYCLOBENZAPRINE 10 MG TAB PO PRN (07:15)
[2018-08-18] MEDS ORDERED: INSULIN 70/30 100 UNITS/ML SQ SCH (07:30)
[2018-08-18] MEDS ORDERED: OXYCODONE HCL 5 MG TAB PO PRN (07:52)
[2018-08-18 08:15] VITALS: BP 153/73; TEMP 96.9
[2018-08-18] MEDS ORDERED: POTASSIUM 25 MEQ EFFERV TAB PO SCH (09:00)
[2018-08-18] MEDS ORDERED: FUROSEMIDE 20 MG/ 2ML VIAL IV SCH (09:00)
[2018-08-18] MEDS ORDERED: ASPIRIN EC 81 MG TAB PO SCH (09:00)
[2018-08-18] MEDS ORDERED: TOPIRAMATE 100 MG TAB PO SCH (09:00)
[2018-08-18] MEDS: INSULIN -REGULAR HUMAN 50 UNIT/0.5 ML ML SQ SCH ×2 (09:06→13:03)
[2018-08-18] MEDS: FAMOTIDINE 20 MG/2 ML VIAL IV SCH (09:07)
[2018-08-18] MEDS: ENOXAPARIN 100 MG/ML SYR SQ SCH (09:07)
--- NOTE | 2018-08-18 09:14 | EKG ---
Test Date: 2018-08-18 Test Time: 07:41:07 Competitive Athlete: ISI MEASUREMENT RESULTS: Intervals: Rate: 58 UT: 154 QRSD: 74 QT: 424 QTc: 416 [place]: P: 48 UT: 154 QRS: 23 T: 31 INTERPRETIVE STATEMENTS: Sinus bradycardia Low voltage QRS Borderline ECG Compared to ECG 08/17/2018 16:54:01 Low QRS voltage now present Sinus rhythm no longer present Myocardial infarct finding no longer present Electronically Signed On 08-18-18 09:13:49 CDT by Jaylan Sykes
[2018-08-18] MEDS ORDERED: REGADENOSON 0.4 MG/5 ML SYR IV ONE (09:48)
[2018-08-18 10:41] LABS: Thyroid Stimulating Hormone 66.6 uIU/mL (0.360-3.740)
--- NOTE | 2018-08-18 12:32 | CON ---
Chief Complaint: Chest pain and swelling. History Of Present Illness: Mrs. Dalia Rai has diabetes, morbid obesity, but no history of heart disease. She uses no tobacco. 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 Medications: She takes rosuvastatin, promethazine, topiramate, cyclobenzaprine, levothyroxine, insul in, and oxycodone. Allergies: SHE IS ALLERGIC TO GABAPENTIN AND MORPHINE. Physical Examination: Vital Signs: 5 feet 5 inches, 358 pounds. HEENT: Normal. Lungs: Clear. Neck: Carotids, no bruit. Extremities: Palpable distal pulses. Electrocardiogram shows a questionable anterior VA. I would recommend we do a nuclear stress test an d echo. She had a CT angio of the chest that is normal. The chest x-ray indicates no acute intratho racic process. I think we are dealing with nonspecific symptoms, but with all of her risk factors, s he certainly could have developed coronary artery disease. Apparently, less than a year ago she had a stress test and echo that were normal by her associate accountant at [facility]. YANDEL/ABRAHAM Voice ID: [id number] Report ID: [id number]
--- NOTE | 2018-08-18 13:07 | P.SSS ---
Patient History Date of Service: 08/18/18 Reason for admission: EDEMA, DYSPNEA. History of Present Illness: ANIBAL CALLS ME YESTERDAY ABOUT DYSPNEA AND EDEMA WITH R ARM TINGLING. I ASKED HER TO COME TO ER. SHE HAS MILD HIGH BNP. MILD HF AND EDEMA. HER TSH IS HIGH. SHE IS TO BE ON 150 MCG OF LEVOXYL BUT SHE TAKES ONLY 125 MCG. SHE GOES TO SOME OTHER DOCTORS IN [place] FOR HER CARE SHE HAS SEEN DR WATSON AND HAS NORMAL S TEST AND NORMAL ECHO DONE JUST A FEW MONTHS AGO. SHE WANTS TO GO HOME AND SEE HIM TODAY. SHE HAS NO CHEST PAIN. Allergies gabapentin Allergy (Verified 07/09/17 10:44) Nausea/Vomiting morphine Allergy (Verified 07/09/17 10:44) Hives/Rash Home Medications: Cyclobenzaprine [Flexeril*] 10 mg PO BIDP PRN 04/16/16 Promethazine Tab [Phenergan*] 25 mg PO Q6HP PRN 04/16/16 Rosuvastatin [Crestor*] 5 mg PO BEDTIME 04/16/16 Topiramate [Topamax*] 100 mg PO BID 04/16/16 Levothyroxine [Synthroid*] 150 mcg PO [id number] 06/10/17 Insulin 70/30 NPH/Reg Human [Novolin 70/30*] 20 unit SQ BIDAC #10 ml 06/13/17 Oxycodone HCl/Acetaminophen [Percocet 10-325 mg Tablet] 1 each PO TIDP PRN 07/09 Furosemide [Lasix] 40 mg PO DAILY #90 tab 08/18/18 Potassium Chloride [K-Dur] 20 meq PO DAILY #90 tab.er.prt 08/18/18 - Past Medical/Surgical History Has patient received pneumonia vaccine in the past: Yes Diabetic: Yes -: Diabetes mellitus type 2 -: Hypertension -: Chronic pain -: Obesity -: Arthritis of the hip -: Chronic back pain -: Recent history of necrotizing infection-right inguinal and labial area -: Former smoker -: sleep apnea -: Neuropathy -: 10 surgeries to the right inguinal and labial area-necrotizing infectio -: Cholecystectomy -: Hysterectomy -: Back injections Psychosocial/ Personal History: She is . She moved from [place] to [place]. She is retired nurse practitioner. She has 1 child. - Social History Smoking Status: Former smoker Alcohol use: No CD- Drugs: No Caffeine use: Yes Place of Residence: Home Review of Systems 10-point ROS is otherwise unremarkable General: Weakness, Malaise Respiratory: Shortness of Breath Physical Examination - Vital Signs Temperature: 96.9 F Blood Pressure: 153/73 Pulse: 62 Respirations: 20 Pulse Ox (%): 96 - Physical Exam General: Alert, In no apparent distress, Obese HEENT: Atraumatic, PERRLA, Mucous membr. moist/pink, EOMI, Sclerae nonicteric Neck: Supple, 2+ carotid pulse no bruit, No LAD, Without JVD or thyroid abnormality Respiratory: Clear to auscultation bilaterally, Normal air movement Cardiovascular: Regular rate/rhythm, Normal S1 S2, Edema Gastrointestinal: Normal bowel sounds, No tenderness Musculoskeletal: No tenderness Integumentary: No rashes Neurological: Normal gait, Normal speech, Normal strength at 5/5 x4 extr, Normal tone, Normal affect Lymphatics: No axilla or inguinal lymphadenopathy - Studies Laboratory Data (last 24 hrs) 08/17/18 17:10: PT 11.2, INR 0.95 08/17/18 17:10: WBC 9.1, Hgb 13.8, Hct 40.0, Plt Count 206 08/17/18 17:10: Sodium 140, Potassium 3.9, BUN 14, Creatinine 1.03, Glucose 289 H, Magnesium 2.0, Total Bilirubin 0.2, AST 21, ALT 26, Alkaline Phosphatase 77 - Diagnosis (Problem(s)) (1) Chronic diastolic (congestive) heart failure Current Visit: Yes Status: Chronic Plan: LASIX AND KCL DAILY. MULTIFACTORIAL , OBESITY , LOW THYROID, DM ETC. DR. WATSON TO SEE TODAY. SHE WANTS HIM TO DO THE WORK. (2) Hypothyroid Current Visit: Yes Status: Chronic Plan: RAISE THE DOSE TO HER USUAL DOSE. Qualifiers: Hypothyroidism type: due to Steph's thyroiditis Qualified Code(s): E03.8 - Other specified hypothyroidism; E06.3 - Autoimmune thyroiditis (3) Uncontrolled diabetes mellitus Current Visit: Yes Status: Chronic Plan: NOT ABLE TO LOSE WEIGHT. NEEDS TO EAT BETTER AND LOSE WEIGHT. 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 Qualifiers: Diabetes mellitus type: type 2 (4) Morbid obesity Current Visit: Yes Status: Chronic Plan: ABOVE. - Disposition Disposition: ROUTINE DISCHARGE Condition: FAIR Patient Discharge Instructions: TO VISIT DR. WATSON TODAY.
[2018-08-18] MEDS ORDERED: ROSUVASTATIN 10 MG TAB PO SCH (21:00)
[2018-08-19] MEDS ORDERED: LEVOTHYROXINE SOD 0.075 MG TAB PO SCH (07:45)
== END 2018-08-18 14:07 | disposition home or self-care (01) ==
LOC: ER 16:34 → 4TH 20:31
PROVIDERS: ADMIT Internal Medicine; ATTEND Internal Medicine
DX: I11.0 Hypertensive heart disease with heart failure (principal); I50.32 Chronic diastolic (congestive) heart failure; E11.65 Type 2 diabetes mellitus with hyperglycemia; E66.9 Obesity, unspecified; Z68.42 Body mass index [BMI] 45.0-49.9, adult; E06.3 Autoimmune thyroiditis
CPT/HCPCS: 93005 ×2; 85025 ×2; 80048 ×2; 36415; 83735; 85610; 82962 ×2; 80076; 84443; 81003; 83036; 84484 ×3; 84439; 83880; 71275; 71045; 93970; 96375; 96372; 96374; 99285; Q9967; J1940 ×2; J1650 ×2; J1170 ×6; J2405; G0378 ×2; J2785

== ENCOUNTER 2018-09-28 08:14 | Day surgery (SDC) | payer OTHER ==
[2018-09-25 13:54] LABS: Absolute Lymphocytes (CBC) 1.7 K/uL (0.7-4.9); Absolute Monocytes 0.4 K/uL (0.1-1.3); Absolute Neutrophil 5.4 K/uL (1.8-8.0); Basophils % 0.7 % (0-1.3); Eosinophils % 1.2 % (0-4.4); Hematocrit 40.6 % (36.0-45.0); Lymphocytes % 22.4 % (15.3-44.8); MPV 7.7 fL (7.6-11.3); Monocytes % 5.1 % (3.3-12.3); RBC Red Blood Cell Count 4.73 M/uL (3.86-4.86)
[2018-09-25 14:08] LABS: Potassium 4.1 mmol/L (3.5-5.1)
--- NOTE | 2018-09-25 14:27 | RAD REPORT ---
EXAM DESCRIPTION: Katie Schmidt (2 Views)09/25/2018 2:21 pm CLINICAL HISTORY: Preop COMPARISON: July 2018 FINDINGS: The lungs appear clear of acute infiltrate. The heart is normal size IMPRESSION: No acute abnormalities displayed
--- NOTE | 2018-09-25 15:14 | EKG ---
Test Date: 2018-09-25 Test Time: 13:50:17 [employer] Partner: ISI MEASUREMENT RESULTS: Intervals: Rate: 73 [place]: 154 QRSD: 68 QT: 390 QTc: 429 Spencer: P: 50 KY: 154 QRS: 53 T: 10 INTERPRETIVE STATEMENTS: Normal sinus rhythm Low voltage QRS Borderline ECG Compared to ECG 08/18/2018 07:41:07 Sinus bradycardia no longer present Electronically Signed On 09-25-18 15:14:11 CDT by Jaylan Sykes
--- OUTSIDE RECORDS SUMMARY | 2018-09-28 08:19 | XMS REPORT | Clinical Summary ---
:1960 Author Organization [facility] Address [address] [place] [address] Care Team Providers Name Role Phone Lobito [...] left hip MA joint (Primary Dx) after 09/27/2017 Family History Medical History Relation Name Comments [...] 112 kg (247 lb) 04/23/2018 2:06 PM STEREO COMPILER Height 154.9 cm (5' 1") 04/23/2018 2:06 PM STEREO COMPILER Body Mass Index 46.67 04/23/2018 2:06 PM STEREO COMPILER Plan of Treatment Health Maintenance Due Date Last Done Comments CERVICAL CANCER SCREENING 1983 BREAST CANCER SCREENING 02/14/2012 COLON CANCER SCREENING 02/14/2012 SHINGLES VACCINES (#1) 02/14/2012 INFLUENZA VACCINE 12/24/2018 Procedures Procedure Name Priority Date/Time Associated Diagnosis Comments MRI LOWER EXTREMITY Routine 05/08/2018 JOINT WO CONTRAST LEFT XR HIP 2-3 VIEWS LEFT Routine 04/23/2018 2:12 Pain of left hip Results for this PM STEREO COMPILER joint procedure are in the results section. MD ARTHROCENTESIS Routine 04/23/2018 2:00 Trochanteric Results for this ASPIR&/INJ MAJOR PM STEREO COMPILER bursitis of right procedure are in JT/BURSA W/O US hip the results section. MRI LOWER EXTREMITY Routine 03/04/2018 11:55 Results for this EXTERNAL STUDY AM CDT procedure are in the results section. after 09/27/2017 Results MRI Lower Extremity Joint Wo Contrast Left (05/08/2018) Narrative Performed At XR Hip 2-3 View Left (04/23/2018 2:12 PM STEREO COMPILER) Narrative Performed At No evidence of degenerative changes. Joint space is well maintained. There RADIANT are no fractures or lesions present. Performing Organization Address [facility] Phone Number [facility] [address] [place] [address] Large Joint Arthrocentesis: hip, L greater trochanteric bursa (04/23/2018 2:00 PM STEREO COMPILER) Narrative Performed At Conrad Reece MD 04/24/20189:25 AM Large Joint Arthrocentesis: hip, L greater trochanteric bursa Consent given by: patient Site marked: site marked Timeout: Immediately prior to procedure a time out was called to verify the correct patient, procedure, equipment, customer support advisor and site/side marked as required Supporting Documentation [...] This exam was not acquired at a [facility] facility and has not been RADIANT interpreted by a [facility] Provider.The exam was imported into our imaging system for comparisons purposes. Performing Organization Address [facility] Phone Number [facility] [address] [place] [address] after 09/27/2017 Insurance Payer Benefit Plan / Group Subscriber ID Type Phone Address [employer] [facility] EXCHANGE xxxxxxxxxxxx Exchange [employer] Advance Directives Patient has advance care planning documents on file. For more information, please contact:Tanmay Hassan[address] [place] [address]
[2018-09-28] MEDS ORDERED: CEFAZOLIN/SWI 1gm 1 GM/10 ML SYR ONE (09:09)
[2018-09-28] MEDS ORDERED: NA CHLORIDE 0.9% 1,000 ML ONE (09:09)
[2018-09-28] MEDS ORDERED: PROPOFOL 200 MG/20 ML VIAL IV ONE (10:58)
[2018-09-28] MEDS ORDERED: FENTANYL CITR 100 MCG/2 ML ONE (10:58)
[2018-09-28] MEDS ORDERED: LIDOCAINE 1% MPF 5 ML VIAL ONE (10:58)
[2018-09-28] MEDS ORDERED: MIDAZOLAM HCL 2 MG/2 ML INJ ONE (10:58)
[2018-09-28] MEDS ORDERED: BUPIVACAINE 0.5% PF 10 ML VIAL ONE (11:00)
[2018-09-28] MEDS ORDERED: KETOROLAC 30 MG/ML INJ ONE (11:27)
[2018-09-28] MEDS ORDERED: GLYCOPYRROLATE 0.2 MG/ML SYR ONE (11:28)
[2018-09-28] MEDS ORDERED: ONDANSETRON 4 MG/2 ML VIAL ONE (11:28)
[2018-09-28] MEDS: FENTANYL CITR 100 MCG/2 ML ONE ×4 (11:32→12:08)
[2018-09-28 14:27] VITALS: BP 126/74; TEMP 97.6; O2SAT 98
--- NOTE | 2018-10-13 04:56 | OP ---
Date of Procedure: 10/12/2018 Surgeon: Devan Hodges MD Preoperative Diagnosis: Infected left groin subcutaneous mass. Postoperative Diagnosis: Infected left groin subcutaneous mass. Procedure: Excisional biopsy of infected left groin subcutaneous mass with drainage of an abscess. Anesthesia: General plus local. Findings: The patient has an abscess on the left groin region, has proximal and distal masses. They were altogether removed. There is also 1 next to it. It was punctured. This when we removed the m ass shows purulent discharge consistent with a deep abscess. 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 This time she is concerned because this is the way they always start and she came to us and devang gnosed with an infected mass with abscess. The benefit, alternative, and risks of excisional biopsy of that mass with drainage of an abscess were fully explained to the patient, which include, but not limited to infection, bleeding, damage to adjacent structures, anesthesia complication, nonhealing wo und, OR, and even . She also understands this may not relieve the symptoms, she might need more than one surgical intervention. She understands the importance of wound care. Her has been doing that before, so he feels comfortable with wound care. Description Of Procedure: The patient was brought to the operating room, placed in supine position. Anesthesia was done without complication. Prior to that, area was marked by me and the patient in t he holding room. The patient was placed in the lithotomy position. The area was prepped and draped in a sterile fashion. We had this in the left groin area, the mass. We did a wedge excision of that area. Deep inside, we found an abscess with purulent discharge that was open and loculations were e xplored and opened. There was a tiny mass next to it. It was included on the specimen. The area wa s irrigated, hemostasis was obtained, and the area was packed with wet-to-dry dressing. The patient tolerated the procedure well. The patient was sent to recovery in stable condition. ELIZABETH/ABRAHAM Voice ID: [id number] Report ID: [id number]
--- NOTE | 2018-10-13 05:35 | DS ---
Date of Discharge: 09/28/2018 Diagnosis: Infected left groin subcutaneous mass with drainage of an abscess. Disposition: Home. Activity: As tolerated. No heavy lifting. Wet-to-dry dressing twice a day. Medications: See orders. ELIZABETH/ABRAHAM Voice ID: [id number] Report ID: [id number]
== END 2018-09-28 13:10 | disposition home or self-care (01) ==
LOC: OR 08:14
PROVIDERS: ATTEND Surgery
PROC: 0HBAXZZ Excision of Inguinal Skin, External Approach (ICD-10-PCS; principal; 2018-09-28 11:15)
DX: L72.0 Epidermal cyst (principal); L03.116 Cellulitis of left lower limb; E11.9 Type 2 diabetes mellitus without complications; E03.9 Hypothyroidism, unspecified; K21.9 Gastro-esophageal reflux disease without esophagitis; G47.33 Obstructive sleep apnea (adult) (pediatric); Z79.4 Long term (current) use of insulin; Z79.899 Other long term (current) drug therapy; Z88.6 Allergy status to analgesic agent
CPT/HCPCS: 93005; 85025; 80048; 36415; 82962 ×2; 88304; 71046; 11403; J2704; J2250; J3010 ×3; J0690; J7030; J2405

== ENCOUNTER 2018-09-30 05:29 | Emergency (ER) | payer OTHER ==
--- OUTSIDE RECORDS SUMMARY | 2018-09-30 05:32 | XMS REPORT | Clinical Summary ---
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 Height 154.9 cm (5' 1") 04/23/2018 2:06 PM MOLDING PLASTERER Body Mass Index 46.67 04/23/2018 2:06 PM MOLDING PLASTERER Plan of Treatment Health Maintenance Due Date Last Done Comments CERVICAL CANCER SCREENING 1983 BREAST CANCER SCREENING 02/14/2012 COLON CANCER SCREENING 02/14/2012 SHINGLES VACCINES (#1) 02/14/2012 INFLUENZA VACCINE 12/24/2018 Procedures Procedure Name Priority Date/Time Associated Diagnosis Comments MRI LOWER EXTREMITY Routine 05/08/2018 JOINT WO CONTRAST LEFT XR HIP 2-3 VIEWS LEFT Routine 04/23/2018 2:12 Pain of left hip Results for this PM MOLDING PLASTERER joint procedure are in the results section. [facility] ARTHROCENTESIS Routine 04/23/2018 2:00 Trochanteric Results for this ASPIR&/INJ MAJOR PM MOLDING PLASTERER bursitis of right procedure are in JT/BURSA W/O US hip the results section. MRI LOWER EXTREMITY Routine 03/04/2018 11:55 Results for this EXTERNAL STUDY AM CDT procedure are in the results section. after 09/29/2017 Results MRI Lower Extremity Joint Wo Contrast Left (05/08/2018) Narrative Performed At XR Hip 2-3 View Left (04/23/2018 2:12 PM MOLDING PLASTERER) Narrative Performed At No evidence of degenerative changes. Joint space is well maintained. There RADIANT are no fractures or lesions present. Performing Organization Address [facility] Phone [facility] [address] [place] [address] Large Joint Arthrocentesis: hip, L greater trochanteric bursa (04/23/2018 2:00 PM MOLDING PLASTERER) Narrative Performed At Conrad Reece MD 04/24/20189:25 AM Large Joint Arthrocentesis: hip, L greater trochanteric bursa Consent given by: patient Site marked: site marked Timeout: Immediately prior to procedure a time out was called to verify the correct patient, procedure, equipment, user support specialist and site/side marked as required Supporting Documentation [...] This exam was not acquired at a [facility] facility and has not been RADIANT interpreted by a [facility] Provider.The exam was imported into our imaging system for comparisons purposes. Performing Organization Address [facility] Phone Number [facility] [address] [place] [address] after 09/29/2017 Insurance Payer Benefit Plan / Group Subscriber ID Type Phone Address [employer] [facility] EX[employer] xxxxxxxxxxxx Exchange [employer] Advance Directives Patient has advance care planning documents on file. For more information, please contact:Tanmay Hassan[address] [place] [address]
[2018-09-30 06:01] LABS: Protime INR 0.92
[2018-09-30] MEDS ORDERED: MEPERIDINE HCL 25 MG/0.5 ML ONE ×2 (06:06→08:35)
[2018-09-30] MEDS ORDERED: ONDANSETRON 4 MG/2 ML VIAL ONE (06:06)
[2018-09-30] MEDS ORDERED: NA CHLORIDE 0.9% 500 ML ONE (06:07)
[2018-09-30 06:08] LABS: Absolute Lymphocytes (CBC) 2.5 K/uL (0.7-4.9); Absolute Monocytes 0.5 K/uL (0.1-1.3); Absolute Neutrophil 4.5 K/uL (1.8-8.0); Basophils % 0.4 % (0-1.3); Eosinophils % 1.6 % (0-4.4); Hematocrit 40.9 % (36.0-45.0); Lymphocytes % 32.9 % (15.3-44.8); MPV 7.5 fL (7.6-11.3); Monocytes % 6.8 % (3.3-12.3); RBC Red Blood Cell Count 4.76 M/uL (3.86-4.86)
[2018-09-30 06:14] LABS: ALT/SGPT 22 U/L (12-78); AST/SGOT 11 U/L (15-37); Albumin 3.2 g/dL (3.4-5.0); Alkaline Phosphatase 101 U/L (45-117); BUN Blood Urea Nitrogen 18 mg/dL (7-18); Bicarbonate 29 mmol/L (21-32); Bilirubin Direct < 0.1 mg/dL (0-0.2); Bilirubin Total 0.2 mg/dL (0.2-1.0); Glucose Level 216 mg/dL (74-106); NT PRO-BNP 211 pg/mL (<125); Potassium 3.9 mmol/L (3.5-5.1); Protein, Total 7.1 g/dL (6.4-8.2); Sodium Level 139 mmol/L (136-145); Troponin (Emerg Dept Use Only) < 0.02 ng/mL (0.0-0.045)
[2018-09-30] MEDS ORDERED: KETOROLAC 30 MG/ML INJ ONE (07:21)
--- NOTE | 2018-09-30 08:06 | RAD REPORT ---
EXAM DESCRIPTION: Katie Single View09/30/2018 6:09 am CLINICAL HISTORY: Chest pain COMPARISON: September 25, 2018 FINDINGS: The lungs appear clear of acute infiltrate. The heart is normal size IMPRESSION: No acute abnormalities displayed
--- NOTE | 2018-09-30 09:28 | ER ---
Nurse's Notes [facility] Name: Cesia Rai Age: 58 yrs Sex: Female : 1960 Arrival Date: 09/30/2018 Time: 05:32 Bed 6 Private MD: Lobito Angel V Diagnosis: Chest pain, unspecified;Chest pain on breathing Presentation: 09/30 05:38 Presenting complaint: EMS states: they were toned out for report of pt having chest bb pain since yesterday pt had surgery yesterday to remove a cyst and has been having chest pain since then with shortness of breath. Transition of care: patient was not received from another setting of care. Onset of symptoms was September 29, 2018. Risk Assessment: Do you want to hurt yourself or someone else? Patient reports no desire to harm self or others. Initial Sepsis Screen: Does the patient meet any 2 criteria? No. Patient's initial sepsis screen is negative. Does the patient have a suspected source of infection? No. Patient's initial sepsis screen is negative. Care prior to arrival: Medication(s) given: ASA, 81 mg, x 4, Nitroglycerin, x 2. 05:38 Method Of Arrival: EMS: [facility] bb 05:38 Acuity: LUIS 3 bb Historical: - Allergies: 05:46 GABAPENTIN; bb 05:46 Morphine; bb - Home Meds: 05:46 percoset 10/325 mg TID as needed [Active]; Topamax 100 mg Oral tab 1 tab 2 times per bb day [Active]; diclofenac sodium 25 mg oral TbEC 1 tab 2 times per day [Active]; fentanyl [Active]; Synthroid 150 mcg Oral tab 1 tab once daily [Active]; ondansetron HCl 4 mg Oral tab 1 tabs 3 times per day [Active]; rosuvastatin 5 mg oral tab 1 tab once daily [Active]; novalin 70/30 20 units BID [Active]; novalog U-100 as needed [Active]; tumeric 1000 mg BID [Active]; - PMHx: 05:46 Diabetes - NIDDM; necrotizing fascitis; neuropathy; Seizures; bb - PSHx: 05:46 Hysterectomy; hip arthroscopy; necrotizing faciaitis; bb - Immunization history:: Adult Immunizations up to date, Pneumococcal vaccine is up to date, Flu vaccine is not up to date. It has been more than one year since last vaccine. - Social history:: Smoking status: Patient/guardian denies using tobacco. - Ebola Screening: : No symptoms or risks identified at this time. Screenin:50 Abuse screen: Denies threats or abuse. Nutritional screening: No deficits noted. ea Tuberculosis screening: No symptoms or risk factors identified. Fall Risk IV access (20 points). Assessment: 05:48 General: Appears uncomfortable, Behavior is calm, cooperative, appropriate for age. ea Pain: Complains of pain in chest Pain does not radiate. Pain currently is 10 out of 10 on a pain scale. Is continuous. Neuro: Level of Consciousness is awake, alert, obeys commands, Oriented to person, place, time, situation. Cardiovascular: Heart tones S1 S2 present Patient's skin is warm and dry. Respiratory: Airway is patent Respiratory effort is even, unlabored, Respiratory pattern is regular, symmetrical, Breath sounds are clear bilaterally. GI: No signs and/or symptoms were reported involving the gastrointestinal system. Derm: Skin is pink, warm \T\ dry. Musculoskeletal: Circulation, motion, and sensation intact. 07:22 Reassessment: Patient appears in no apparent distress at this time. Patient and/or family updated on plan of care and expected duration. Pain level reassessed. Patient is alert, oriented x 3, equal unlabored respirations, skin warm/dry/pink. Pain: Complains of pain in left lateral posterior chest and anterior aspect of left upper chest Pain began gradually, 2-3 days ago. Neuro: No deficits noted. Level of Consciousness is awake, alert, obeys commands, Oriented to person, place, time, situation. Cardiovascular: Heart tones S1 S2 present Capillary refill < 3 seconds in bilateral fingers toes Clubbing of nail beds is present Patient's skin is warm and dry. Pulses are all present. Cardiovascular: Rhythm is sinus rhythm. Respiratory: Airway is patent Trachea midline Respiratory effort is even, unlabored, Respiratory pattern is regular, symmetrical, Breath sounds are clear bilaterally. GI: Abdomen is non-distended, obese. : No signs and/or symptoms were reported regarding the genitourinary system. 08:14 Reassessment: Patient appears in no apparent distress at this time. No changes from previously documented assessment. Patient and/or family updated on plan of care and expected duration. Pain level reassessed. Patient is alert, oriented x 3, equal unlabored respirations, skin warm/dry/pink. pt states she feels the exact same, still c/o chest pain. physician notified, medicated per orders. 09:26 Reassessment: Dr Meza in to speak with the pt. sv Vital Signs: 05:46 BP 132 / 86; Pulse 88; Resp 16 S; Temp 98.6(O); Pulse Ox 97% on R/A; Weight 113.4 kg bb (R); Height 5 ft. 1 in. (154.94 cm) (R); Pain 8/10; 07:22 BP 132 / 80; Pulse 59; Resp 17; Pulse Ox 99% on 2 lpm NC; Pain 7/10; ch 08:14 BP 118 / 66; Pulse 61; Resp 19; Pulse Ox 96% on R/A; Pain 6/10; ch 09:16 BP 113 / 57; Pulse 61; Resp 14; Pulse Ox 95% ; sv 09:20 Pain 5/10; sv 09:49 BP 108 / 61; Pulse 62; Resp 16; Pulse Ox 96% ; sv 05:46 Body Mass Index 47.24 (113.40 kg, 154.94 cm) bb ED Course: 05:32 Patient arrived in ED. es 05:33 Lobito Angel MD is Private Physician. es 05:34 EKG completed in triage. Results shown to MD. bb 05:35 Deni Holman, RN is Primary Nurse. rr5 05:39 Triage completed. bb 05:40 Missed attempt(s): 20 gauge in right antecubital area. Bleeding controlled, band aid jd3 applied, catheter tip intact. Patient maintains SpO2 saturation greater than 95% on room air. 05:44 Julio Cesar Meza MD is Attending Physician. kdr 05:45 Inserted saline lock: 20 gauge in left antecubital area, using aseptic technique. Blood jd3 collected. 05:46 Arm band placed on Patient placed in an exam room, on a stretcher, on cardiac rehab nurse, bb on pulse oximetry. 05:47 Holly Vargas, LOWELL is Primary Nurse. ea 05:50 Patient has correct armband on for positive identification. Placed in gown. Call light ea in reach. Side rails up X2. groundwater monitoring technician on. Pulse ox on. NIBP on. 06:07 XRAY Chest (1 view) In Process Unspecified. EDMS 07:03 Inserted saline lock: 20 gauge in right antecubital area, using aseptic technique. bb 07:22 No apparent distress. Resting quietly. ch 07:22 Report received from Doreen. Warm blanket given. ch 07:22 No provider procedures requiring assistance completed. ch 07:41 Primary Nurse role handed off by Holly Vargas, RN ch 07:41 Imani Patel, LOWELL is Primary Nurse. ch 07:48 Patient admitted, IV remains in place. ch 09:13 Basic Metabolic Panel Sent. sv 09:13 CBC with Diff Sent. sv 09:13 LFT's Sent. sv 09:13 Magnesium Sent. sv 09:27 Lobito Angel MD is Referral Physician. kdr 09:50 IV discontinued, intact, bleeding controlled, No redness/swelling at site. Pressure sv dressing applied. Administered Medications: 05:55 Drug: Zofran 4 mg Route: IVP; Site: left antecubital; ea 07:42 Follow up: Response: No adverse reaction ch 06:01 Drug: NS 0.9% 500 ml Route: IV; Rate: bolus; Site: left antecubital; ea 08:16 Follow up: IV Status: Completed infusion; IV Intake: 500ml ch 06:02 Drug: Demerol 25 mg Route: IVP; Site: left antecubital; ea 07:43 Follow up: Response: No adverse reaction ch 07:05 Drug: TORadol - Ketorolac 15 mg Route: IVP; Site: right antecubital; ch 07:43 Follow up: Response: No adverse reaction ch 08:20 Drug: Demerol 25 mg Route: IVP; Site: right antecubital; ch 09:20 Follow up: Pain 5/10 Adult; Response: No adverse reaction; Pain is decreased sv Intake: 08:16 IV: 500ml; Total: 500ml. Outcome: 07:47 Admitted to Med/surg accompanied by donnie, via stretcher, room 221, Report called to shasta Anna 07:47 Condition: stable 07:47 Instructed on the need for admit. 09:28 Discharge ordered by . kdr 09:50 Discharged to home ambulatory, with family. sv 09:50 Condition: stable 09:50 Discharge instructions given to patient, family, Instructed on discharge instructions, follow up and referral plans. Demonstrated understanding of instructions, follow-up care. 09:51 Patient left the ED. sv Signatures: Dispatcher [employer] Imani Castillo, RN RN Zeynep Funez RN RN Julio Cesar Junior MD MD kdr Salyer, Edna es Ballard, Brenda, RN RN Holly Power RN Juanito Marshall ea, RN RN jd3 Deni Holman RN RN rr5
--- NOTE | 2018-09-30 09:28 | EDPHYS ---
Physician Documentation [facility] Name: Cesia Rai Age: 58 yrs Sex: Female : 1960 Arrival Date: 09/30/2018 Time: 05:32 Bed 6 Private MD: Lobito Angel V ED Physician Julio Cesar Meza HPI: 09/30 05:51 This 58 yrs old Female presents to ER via EMS with complaints of Chest Pain. kdr 05:51 The patient or guardian reports chest pain that is located primarily in the substernal kdr area, anterior chest wall, left, anterior aspect of left upper chest and mid-sternal area. Onset: yesterday. The pain radiates to the left scapula. Associated signs and symptoms: Pertinent positives: diaphoresis, nausea, shortness of breath, Had a cyst removed in her groin on Friday, Pertinent negatives: abdominal pain, dizziness, headache, lower extremity pain, lower extremity swelling, near syncope, palpitations, recent travel. The chest pain is described as aching, dull, a heaviness. Duration: The patient or guardian reports a single episode, that is still ongoing, and worsening. Modifying factors: The symptoms are alleviated by nothing. the symptoms are aggravated by breathing, deep breath, movement. Severity of pain: At its worst the pain was moderate in the emergency department the pain is unchanged. The patient has not experienced similar symptoms in the past. Had full cardiac w/u about a year ago and father had an HI at 26 y/o. Historical: - Allergies: 05:46 GABAPENTIN; bb 05:46 Morphine; bb - Home Meds: 05:46 percoset 10/325 mg TID as needed [Active]; Topamax 100 mg Oral tab 1 tab 2 times per bb day [Active]; diclofenac sodium 25 mg oral TbEC 1 tab 2 times per day [Active]; fentanyl [Active]; Synthroid 150 mcg Oral tab 1 tab once daily [Active]; ondansetron HCl 4 mg Oral tab 1 tabs 3 times per day [Active]; rosuvastatin 5 mg oral tab 1 tab once daily [Active]; novalin 70/30 20 units BID [Active]; novalog U-100 as needed [Active]; tumeric 1000 mg BID [Active]; - PMHx: 05:46 Diabetes - NIDDM; necrotizing fascitis; neuropathy; Seizures; bb - PSHx: 05:46 Hysterectomy; hip arthroscopy; necrotizing faciaitis; bb - Immunization history:: Adult Immunizations up to date, Pneumococcal vaccine is up to date, Flu vaccine is not up to date. It has been more than one year since last vaccine. - Social history:: Smoking status: Patient/guardian denies using tobacco. - Ebola Screening: : No symptoms or risks identified at this time. ROS: 05:51 Constitutional: Negative for fever, chills, and weight loss, Eyes: Negative for injury, kdr pain, redness, and discharge, ENT: Negative for injury, pain, and discharge, Neck: Negative for injury, pain, and swelling, Abdomen/GI: Negative for abdominal pain, nausea, vomiting, diarrhea, and constipation, Back: Negative for injury and pain, : Negative for injury, bleeding, discharge, and swelling, MS/Extremity: Negative for injury and deformity, Skin: Negative for injury, rash, and discoloration, Neuro: Negative for headache, weakness, numbness, tingling, and seizure activity. Psych: Negative for depression, anxiety, suicide ideation, homicidal ideation, and hallucinations, Allergy/Immunology: Negative for hives, rash, and allergies, Endocrine: Negative for neck swelling, polydipsia, polyuria, polyphagia, and marked weight changes, Hematologic/Lymphatic: Negative for swollen nodes, abnormal bleeding, and unusual bruising. 05:51 Cardiovascular: Positive for chest pain, of the left clavicle, anterior aspect of left upper chest, mid-sternal area and left lateral posterior chest, Negative for edema, orthopnea, palpitations, paroxysmal nocturnal dyspnea. 05:51 Respiratory: Positive for shortness of breath, at rest. Negative for cough, hemoptysis, orthopnea, sputum production, wheezing. Exam: 05:51 Constitutional: This is a well developed, well nourished patient who is awake, alert, kdr and in no acute distress. Head/Face: Normocephalic, atraumatic. Eyes: Pupils equal round and reactive to light, extra-ocular motions intact. Lids and lashes normal. Conjunctiva and sclera are non-icteric and not injected. Cornea within normal limits. Periorbital areas with no swelling, redness, or edema. Neck: Trachea midline, no thyromegaly or masses palpated, and no cervical lymphadenopathy. Supple, full range of motion without nuchal rigidity, or vertebral point tenderness. No Meningismus. Chest/axilla: Normal chest wall appearance and motion. Nontender with no deformity. No lesions are appreciated. Cardiovascular: Regular rate and rhythm with a normal S1 and S2. No gallops, murmurs, or rubs. Normal PMI, no JVD. No pulse deficits. Respiratory: Lungs have equal breath sounds bilaterally, clear to auscultation and percussion. No rales, rhonchi or wheezes noted. No increased work of breathing, no retractions or nasal flaring. Abdomen/GI: Soft, non-tender, with normal bowel sounds. No distension or tympany. No guarding or rebound. No evidence of tenderness throughout. Back: No spinal tenderness. No costovertebral tenderness. Full range of motion. Skin: Warm, dry with normal turgor. Normal color with no rashes, no lesions, and no evidence of cellulitis. The patient reports wounds in groin area which were not inspected initially MS/ Extremity: Pulses equal, no cyanosis. Neurovascular intact. Full, normal range of motion. Neuro: Awake and alert, GCS 15, oriented to person, place, time, and situation. Cranial nerves II-XII grossly intact. Motor strength 5/5 in all extremities. Sensory grossly intact. Cerebellar exam normal. Normal gait. Psych: Awake, alert, with orientation to person, place and time. Behavior, mood, and affect are within normal limits. Vital Signs: 05:46 BP 132 / 86; Pulse 88; Resp 16 S; Temp 98.6(O); Pulse Ox 97% on R/A; Weight 113.4 kg bb (R); Height 5 ft. 1 in. (154.94 cm) (R); Pain 8/10; 07:22 BP 132 / 80; Pulse 59; Resp 17; Pulse Ox 99% on 2 lpm NC; Pain 7/10; ch 08:14 BP 118 / 66; Pulse 61; Resp 19; Pulse Ox 96% on R/A; Pain 6/10; ch 09:16 BP 113 / 57; Pulse 61; Resp 14; Pulse Ox 95% ; sv 09:20 Pain 5/10; sv 09:49 BP 108 / 61; Pulse 62; Resp 16; Pulse Ox 96% ; sv 05:46 Body Mass Index 47.24 (113.40 kg, 154.94 cm) bb MDM: 05:51 TERRENCE Risk Score: TOTAL SCORE = 0. Data reviewed: vital signs, nurses notes. kdr 06:42 ED course: The patient has not had much relief from the initial round of medication. kdr Still has pain under the left breast that radiates to the left scapula with deep breathing and movement.. 09:25 ED course: Pain better but not entirely resolved. Reviewed all data and answered kdr questions. The patient stated she had Percocet at home and would take ibuprofen OTC for pain. The patient was stable in the ED and happy with the care provided and the plan for discharge and follow-up. 09:28 Patient medically screened. kdr 09/30 05:37 Order name: Basic Metabolic Panel 09/30 05:37 Order name: CBC with Diff 09/30 05:37 Order name: LFT's 09/30 05:37 Order name: Magnesium 09/30 05:37 Order name: NT PRO-BNP; Complete Time: 06:17 09/30 05:37 Order name: PT-INR; Complete Time: 06:13 bb 09/30 05:37 Order name: Troponin (emerg Dept Use Only); Complete Time: 06:17 bb 09/30 05:38 Order name: Basic Metabolic Panel; Complete Time: 06:17 EDMS 09/30 05:38 Order name: CBC with Automated Diff; Complete Time: 06:13 EDMS 09/30 05:38 Order name: Liver (Hepatic) Function; Complete Time: 06:17 EDMS 09/30 05:38 Order name: Magnesium; Complete Time: 06:17 EDMS 09/30 05:55 Order name: D-Dimer; Complete Time: 06:13 EDMS 09/30 06:19 Order name: Troponin (emerg Dept Use Only): 2 hours from initial draw; Complete Time: kdr 08:41 09/30 05:37 Order name: XRAY Chest (1 view); Complete Time: 08:08 bb 09/30 05:37 Order name: EKG; Complete Time: 05:39 bb 09/30 05:37 Order name: Cardiac monitoring; Complete Time: 05:38 09/30 05:37 Order name: EKG - Nurse/Tech; Complete Time: 05:38 09/30 05:37 Order name: IV Saline Lock; Complete Time: 05:51 bb 09/30 05:37 Order name: Labs collected and sent; Complete Time: 05:51 bb 09/30 05:37 Order name: O2 Per Protocol; Complete Time: 05:38 09/30 05:37 Order name: O2 Sat Monitoring; Complete Time: 05:37 bb Administered Medications: 05:55 Drug: Zofran 4 mg Route: IVP; Site: left antecubital; ea 07:42 Follow up: Response: No adverse reaction ch 06:01 Drug: NS 0.9% 500 ml Route: IV; Rate: bolus; Site: left antecubital; ea 08:16 Follow up: IV Status: Completed infusion; IV Intake: 500ml ch 06:02 Drug: Demerol 25 mg Route: IVP; Site: left antecubital; ea 07:43 Follow up: Response: No adverse reaction ch 07:05 Drug: TORadol - Ketorolac 15 mg Route: IVP; Site: right antecubital; ch 07:43 Follow up: Response: No adverse reaction ch 08:20 Drug: Demerol 25 mg Route: IVP; Site: right antecubital; ch 09:20 Follow up: Pain 5/10 Adult; Response: No adverse reaction; Pain is decreased sv Disposition: 09/30/18 09:28 Discharged to Home. Impression: Chest pain, unspecified, Chest pain on breathing. - Condition is Stable. - Discharge Instructions: Nonspecific Chest Pain. - SBAR form, Medication Reconciliation Form, Thank You Letter form. - Follow up: Lobito Angel MD; When: 2 - 3 days; Reason: If symptoms return, Further diagnostic work-up, Recheck today's complaints, Continuance of care, Re-evaluation by your physician. - Problem is new. - Symptoms have improved. Signatures: Dispatcher [employer] EDImani Calderon RN Zeynep Lopez ch, RN RN sv Rittger, Kevin, MD MD [facility] Dedra Wells RN RN bb Antunez, Elena, RN RN ea Corrections: (The following items were deleted from the chart) 05:55 05:51 D-DIMER+COAG.LAB.BRZ ordered. EDMS EDMS 09:51 09:28 09/30/2018 09:28 Discharged to Home. Impression: Chest pain, unspecified; Chest sv pain on breathing. Condition is Stable. Forms are SBAR form, Medication Reconciliation Form, Thank You Letter, Antibiotic Education, Prescription Opioid Use. Follow up: Lobito Angel; When: 2 - 3 days; Reason: If symptoms return, Further diagnostic work-up, Recheck today's complaints, Continuance of care, Re-evaluation by your physician. Problem is new. Symptoms have improved. kdr
[2018-09-30 09:57] VITALS: TEMP 98.6
[2018-09-30 10:03] VITALS: BP 108/61; O2SAT 96
--- NOTE | 2018-09-30 10:40 | EKG ---
Test Date: 2018-09-30 Test Time: 05:33:47 Seat Installer: MEASUREMENT RESULTS: Intervals: Rate: 77 DE: 148 QRSD: 66 QT: 388 QTc: 439 [place]: P: 53 DE: 148 QRS: 29 T: 39 INTERPRETIVE STATEMENTS: Normal sinus rhythm Low voltage QRS Borderline ECG Compared to ECG 09/25/2018 13:50:17 No significant changes Electronically Signed On 09-30-18 10:39:05 CDT by Jaylan Sykes
== END 2018-09-30 09:51 | disposition home or self-care (01) ==
LOC: ER 05:29
DX: R07.1 Chest pain on breathing (principal); E11.9 Type 2 diabetes mellitus without complications; G40.909 Epilepsy, unspecified, not intractable, without status epilepticus; Z79.4 Long term (current) use of insulin; Z88.5 Allergy status to narcotic agent; Z88.8 Allergy status to other drugs, medicaments and biological substances
CPT/HCPCS: 93005; 85025; 80048; 36415; 83735; 85610; 85379; 80076; 84484 ×2; 83880; 71045; 99285; J2175 ×2; J2405

== ENCOUNTER 2019-01-11 11:50 | Observation (INO) | payer OTHER ==
--- OUTSIDE RECORDS SUMMARY | 2019-01-11 12:05 | XMS REPORT | Clinical Summary ---
:1960 Author Organization [facility] Address [address] [place] [address] Care Team Providers Name Role Phone Lobito [...] left hip MA joint (Primary Dx) after 01/10/2018 Family History Medical History Relation Name Comments [...] Vital Signs Vital Sign Reading Time Taken Comments Blood Pressure - - Pulse - - Temperature - - Respiratory Rate - - Oxygen Saturation - - Inhaled Oxygen Concentration - - Weight 112 kg (247 lb) 04/23/2018 2:06 PM FISHING GUIDE Height 154.9 cm (5' 1") 04/23/2018 2:06 PM FISHING GUIDE Body Mass Index 46.67 04/23/2018 2:06 PM FISHING GUIDE Plan of Treatment Health Maintenance Due Date Last Done Comments BREAST CANCER SCREENING 02/14/2012 COLONOSCOPY SCREENING 02/14/2012 SHINGLES VACCINES (#1) 02/14/2012 INFLUENZA VACCINE 12/24/2018 Procedures Procedure Name Priority Date/Time Associated Diagnosis Comments MRI LOWER EXTREMITY Routine 05/08/2018 JOINT WO CONTRAST LEFT XR HIP 2-3 VIEWS LEFT Routine 04/23/2018 2:12 Pain of left hip Results for this PM FISHING GUIDE joint procedure are in the results section. [place] ARTHROCENTESIS Routine 04/23/2018 2:00 Trochanteric Results for this ASPIR&/INJ MAJOR PM FISHING GUIDE bursitis of right procedure are in JT/BURSA W/O US hip the results section. MRI LOWER EXTREMITY Routine 03/04/2018 11:55 Results for this EXTERNAL STUDY AM CDT procedure are in the results section. after 01/10/2018 Results MRI Lower Extremity Joint Wo Contrast Left (05/08/2018) Narrative Performed At XR Hip 2-3 View Left (04/23/2018 2:12 PM FISHING GUIDE) Specimen Narrative Performed At No evidence of degenerative changes. Joint space is well maintained. There HM RADIANT are no fractures or lesions present. Performing Organization Address [facility] Phone Number [facility] [address] [place] [address] Large Joint Arthrocentesis: hip, L greater trochanteric bursa (04/23/2018 2:00 PM FISHING GUIDE) Narrative Performed At Conrad Reece MD 04/24/20189:25 AM Large Joint Arthrocentesis: hip, L greater trochanteric bursa Consent given by: patient Site marked: site marked Timeout: Immediately prior to procedure a time out was called to verify the correct patient, procedure, equipment, production support consultant and site/side marked as required Supporting Documentation [...] Extremity External Study (03/04/2018 11:55 AM CDT) Specimen Narrative Performed At This exam was not acquired at a [facility] facility and has not been RADIANT interpreted by a [facility] Provider.The exam was imported into our imaging system for comparisons purposes. Performing Organization Address [facility] Phone Number ELIZABETH AGUDELO [address] [place] [address] after 01/10/2018 Insurance Payer Benefit Plan / Subscriber ID Effective Dates Phone Address Type [facility] xxxxxxxxxxxx 2017-[employer] CHOICE EXCHANGE EXCHANGE t [employer] Advance Directives For more information, please contact: [phone] Type Date Recorded Patient Public Health Administrator Explanation Advance Directives, Living Will and Medical Power of Information Scientist
[2019-01-11] MEDS ORDERED: ALBUTEROL 2.5 MG/3 ML NEB SOL IH PRN (12:27)
[2019-01-11] MEDS ORDERED: LOPERAMIDE HCL 2 MG CAPSULE PO PRN (13:00)
[2019-01-11] MEDS ORDERED: ACETAMINOPHEN 325 MG TABLET PO PRN (13:00)
[2019-01-11] MEDS ORDERED: POLYETHYL GLY 3350 17 GM/DOSE PO PRN (13:00)
[2019-01-11] MEDS ORDERED: ONDANSETRON 4 MG (ODT) TAB PO PRN ×2 (13:00→17:24)
[2019-01-11] MEDS ORDERED: DIPHENHYDRAMINE 25 MG TAB/CAP PO PRN (13:00)
[2019-01-11] MEDS ORDERED: NACHLORIDE 0.45% 1,000 ML IV SCH (13:00)
[2019-01-11 13:08] LABS: Absolute Lymphocytes (CBC) 2.1 K/uL (0.7-4.9); Basophils % 0.5 % (0-1.3); Hematocrit 40.3 % (36.0-45.0); Lymphocytes % 27.2 % (15.3-44.8); MPV 8.2 fL (7.6-11.3); RBC Red Blood Cell Count 4.64 M/uL (3.86-4.86)
[2019-01-11 13:24] LABS: Protime INR 0.97
[2019-01-11 13:44] VITALS: BMI 47.4
[2019-01-11 13:51] LABS: ALT/SGPT 26 U/L (12-78); AST/SGOT 13 U/L (15-37); Albumin 3.2 g/dL (3.4-5.0); Alkaline Phosphatase 82 U/L (45-117); BUN Blood Urea Nitrogen 17 mg/dL (7-18); Bicarbonate 31 mmol/L (21-32); Bilirubin Direct 0.1 mg/dL (0-0.2); Bilirubin Total 0.4 mg/dL (0.2-1.0); CKMB Creatine Kinase MB < 1.0 ng/mL (0.3-3.6); Creatine Phosphokinase 66 U/L (26-192); Glucose Level 151 mg/dL (74-106); Magnesium 2.1 mg/dL (1.8-2.4); NT PRO-BNP 81 pg/mL (<125); Phosphorus 2.9 mg/dL (2.5-4.9); Potassium 3.9 mmol/L (3.5-5.1); Protein, Total 7.2 g/dL (6.4-8.2); Sodium Level 139 mmol/L (136-145); Troponin I < 0.02 ng/mL (0.0-0.045)
--- NOTE | 2019-01-11 14:27 | RAD REPORT ---
EXAM DESCRIPTION: RAD - Chest Pa And Lat (2 Views) - 01/11/2019 2:16 pm CLINICAL HISTORY: Chest pain, dyspnea COMPARISON: September 30, 2018 TECHNIQUE: PA and lateral views of the chest were obtained. FINDINGS: The lungs are underinflated. No peripheral mass or consolidation. No significant failure o r volume overload. Interstitial pattern is prominent but unchanged. Trachea is in the midline. Heart size is normal and central vasculature is within normal limits. No pleural effusion or pneu mothorax seen. No acute bony finding noted. No aortic abnormality. IMPRESSION: No acute cardiopulmonary process. Above detailed chest findings are stable from compari son.
--- NOTE | 2019-01-11 14:31 | RAD REPORT ---
EXAM DESCRIPTION: CT - Angio Aorta For Dissection - 01/11/2019 2:08 pm CLINICAL HISTORY: Chest pain, upper back pain, prior hysterectomy and cholecystectomy COMPARISON: CT chest PE study July 2018 TECHNIQUE: Dynamically enhanced 3 mm thick images of the chest, abdomen, and upper pelvis were obtai ely during administration of approximately 150mL Isovue 370 IV contrast. Sagittal and coronal reconst ruction images were generated using MIP and reviewed. Exam utilizes a protocol to evaluate entire cou rse of the aorta. All CT scans are performed using dose optimization technique as appropriate and may include automated exposure control or mA/KV adjustment according to patient size. FINDINGS: Aorta is normal in diameter with no dissection or other acute aortic findings. Reconstruct ion images show no significant findings. Pulmonary arteries are normal as well. No cardiomegaly, pericardial thickening or pericardial effusio n. No focal mass or infiltrate in the lung parenchyma. No endobronchial lesions seen. Interstitial praful ngs are prominent. Interstitial pattern is not substantially different from comparison. Minimal inter stitial edema or infiltrate could be masked. No pneumothorax or pleural effusion. No abnormal mediastinal or hilar mass or lymphadenopathy seen. No chest wall mass or abnormal axillar y lymphadenopathy. Celiac, SMA and renal arteries show no suspicious findings. Solid abdominal viscera and bowel show no significant findings. No mass or abnormal lymphadenopathy. No free air, free fluid or inflammatory stranding. No urinary bladder abnormality. IMPRESSION: Negative CT scan of the aorta. Prominent interstitial markings without mass or consolidation of the lung parenchyma. Pattern is stab le but could potentially mask interstitial edema or infiltrate.
[2019-01-11 14:53] LABS: Urine Appearance CLEAR; Urine Bilirubin NEGATIVE (NEG); Urine Blood NEGATIVE (NEG); Urine Color YELLOW; Urine Glucose NEGATIVE (NEG); Urine Protein NEGATIVE (NEG); Urine Specific Gravity >=1.030 (1.005-1.030); Urine Urobilinogen 0.2 mg/dL (0.2-1.0); Urine pH 6.5 (5.0-7.0)
[2019-01-11 14:54] LABS: Urine Microscopic Reflex ORDER UMIC
[2019-01-11] MEDS: ONDANSETRON 4 MG/2 ML VIAL IV PRN ×2 (14:57→20:28)
[2019-01-11] MEDS: HYDROMORPHONE HCL 2 MG/ML inj IV PRN ×2 (14:57→20:27)
[2019-01-11 15:04] LABS: Urine Bacteria NONE SEEN /HPF (<20); Urine Culture Reflex Order REFLEXED; Urine RBC NONE SEEN /HPF (NONE SEEN)
[2019-01-11 15:14] LABS: UR MICROALBUMIN 1.1 mg/dL (< 1.9)
[2019-01-11] MEDS: LEVALBUTEROL 1.25 MG/3 ML NEB IH SCH ×2 (15:15→20:00)
[2019-01-11] MEDS: IPRATROPIUM BROM 0.5MG/2.5ML IH SCH ×2 (15:15→20:00)
[2019-01-11] MEDS ORDERED: ACETAMINOPHEN PO PRN (17:24)
[2019-01-11] MEDS ORDERED: OXYCODONE HCL PO PRN (17:24)
[2019-01-11] MEDS ORDERED: Oxycodone HCl/Acetaminophen 1 TAB TAB PO PRN (17:59)
[2019-01-11] MEDS ORDERED: AZITHROMYCIN IV 500 MG in NA CHLORIDE 0.9% 250 ML IVPB SCH (18:00)
[2019-01-11] MEDS ORDERED: OXYCODONE HCL 5 MG TAB PO PRN (18:01)
[2019-01-11] MEDS: TOPIRAMATE 100 MG TAB PO SCH (20:20)
[2019-01-11] MEDS ORDERED: TUMERIC 1000 MG PO SCH (21:00)
[2019-01-11] MEDS ORDERED: ROSUVASTATIN 10 MG TAB PO SCH (21:00)
[2019-01-11 21:26] LABS: CKMB Creatine Kinase MB < 1.0 ng/mL (0.3-3.6); Creatine Phosphokinase 60 U/L (26-192); Troponin I < 0.02 ng/mL (0.0-0.045)
[2019-01-12] MEDS: HYDROMORPHONE HCL 2 MG/ML inj IV PRN ×4 (00:33→13:27)
[2019-01-12] MEDS: LEVALBUTEROL 1.25 MG/3 ML NEB IH SCH ×3 (02:00→14:25)
[2019-01-12] MEDS: IPRATROPIUM BROM 0.5MG/2.5ML IH SCH ×3 (02:00→14:25)
[2019-01-12 02:33] VITALS: O2SAT 97
[2019-01-12 04:55] LABS: Absolute Lymphocytes (CBC) 2.1 K/uL (0.7-4.9); Basophils % 0.4 % (0-1.3); Hematocrit 38.7 % (36.0-45.0); Lymphocytes % 23.5 % (15.3-44.8); MPV 8.3 fL (7.6-11.3); RBC Red Blood Cell Count 4.43 M/uL (3.86-4.86)
[2019-01-12 05:08] LABS: BUN Blood Urea Nitrogen 16 mg/dL (7-18); Bicarbonate 30 mmol/L (21-32); CKMB Creatine Kinase MB 1.1 ng/mL (0.3-3.6); Creatine Phosphokinase 61 U/L (26-192); Glucose Level 229 mg/dL (74-106); Magnesium 1.9 mg/dL (1.8-2.4); Sodium Level 139 mmol/L (136-145); Troponin I < 0.02 ng/mL (0.0-0.045)
[2019-01-12] MEDS ORDERED: LEVOTHYROXINE SOD 0.075 MG TAB PO SCH (06:30)
[2019-01-12] MEDS ORDERED: INSULIN 70/30 100 UNITS/ML SQ SCH (07:30)
[2019-01-12] MEDS: TOPIRAMATE 100 MG TAB PO SCH (08:26)
[2019-01-12] MEDS: ONDANSETRON 4 MG/2 ML VIAL IV PRN (09:21)
--- NOTE | 2019-01-12 13:08 | P.DS ---
Admission Date: 01/11/19 Discharge Date: 01/12/19 Disposition: ROUTINE DISCHARGE Discharge Condition: GOOD Hospital Course: ANIBAL HAS PLEURITIC PAIN, SHE IS GIVEN ZITHROMAX. SHE ON CT STUDY HAS NO ISSUES. SHE IS MORBIDLY OBESE AND I HAVE ADVSIED TO EAT HEATHY PALEO, ORGANIC FOOD TOLOSE WEIGHT. HER FUTURE IS NOT GOOD OTHERWISE. SHE WILL GET MANY COMPLICATIONS OF OBESITY. SHE KNOWS HOW TO LOSE WEIGHT BUT JUST HAS TO. Vital Signs/Physical Exam: Temp Pulse Resp BP Pulse Ox 97.4 F 68 18 116/61 97 01/12/19 08:00 01/12/19 08:00 01/12/19 09:22 01/12/19 08:00 01/12/19 09:22 General: Mild distress, Obese HEENT: Atraumatic, PERRLA, EOMI Neck: Supple, JVD not distended Respiratory: Clear to auscultation bilaterally, Normal air movement Cardiovascular: Regular rate/rhythm, Normal S1 S2 Gastrointestinal: Normal bowel sounds, No tenderness Musculoskeletal: No tenderness Integumentary: No rashes Neurological: Normal speech, Normal tone, Normal affect Lymphatics: No axilla or inguinal lymphadenopathy Laboratory Data at Discharge: WBC 9.1 K/uL (4.3-10.9) D 01/12/19 04:25 Hgb 13.1 g/dL (12.0-15.0) 01/12/19 04:25 Hct 38.7 % (36.0-45.0) 01/12/19 04:25 Plt Count 180 K/uL (152-406) 01/12/19 04:25 PT 11.5 SECONDS (9.5-12.5) 01/11/19 12:53 INR 0.97 01/11/19 12:53 APTT 30.9 SECONDS (24.3-36.9) 01/11/19 12:53 Sodium 139 mmol/L (136-145) 01/12/19 04:25 Potassium 4.0 mmol/L (3.5-5.1) 01/12/19 04:25 BUN 16 mg/dL (7-18) 01/12/19 04:25 Creatinine 1.06 mg/dL (0.55-1.3) 01/12/19 04:25 Glucose 229 mg/dL (74-106) H 01/12/19 04:25 Phosphorus 2.9 mg/dL (2.5-4.9) 01/11/19 12:53 Magnesium 1.9 mg/dL (1.8-2.4) 01/12/19 04:25 Total Bilirubin 0.4 mg/dL (0.2-1.0) 01/11/19 12:53 AST 13 U/L (15-37) L 01/11/19 12:53 ALT 26 U/L (12-78) 01/11/19 12:53 Alkaline Phosphatase 82 U/L (45-117) 01/11/19 12:53 Troponin I < 0.02 ng/mL (0.0-0.045) 01/12/19 04:25 Home Medications: Rosuvastatin [Crestor*] 5 mg PO BEDTIME 04/16/16 Topiramate [Topamax*] 100 mg PO BID 04/16/16 Levothyroxine [Synthroid*] 150 mcg PO [id number] 06/10/17 Insulin 70/30 NPH/Reg Human [Novolin 70/30*] 20 unit SQ BIDAC #10 ml 06/13/17 Oxycodone HCl/Acetaminophen [Percocet 10-325 mg Tablet] 1 each PO TIDP PRN 07/09 Ondansetron [Zofran (Odt)*] 1 tab PO TID PRN 09/25/18 Tumeric 1,000 mg PO BID 09/25/18 fentaNYL [Duragesic] 1 patch TD Q72H 09/25/18 Azithromycin Tab [Zithromax*] 250 mg PO ZPAK #1 minerva 01/12/19 New Medications: Azithromycin Tab [Zithromax*] 250 mg PO ZPAK #1 minerva Diet: ADA
[2019-01-12 14:49] VITALS: BP 113/57; TEMP 97.8
[2019-01-13] MEDS ORDERED: FENTANYL 50 MCG/PATCH TD SCH (09:00)
== END 2019-01-12 15:53 | disposition home or self-care (01) ==
LOC: 2ND 12:02
PROVIDERS: ADMIT Internal Medicine; ATTEND Internal Medicine
DX: R07.81 Pleurodynia (principal); E11.9 Type 2 diabetes mellitus without complications; E78.5 Hyperlipidemia, unspecified; E03.9 Hypothyroidism, unspecified; E66.01 Morbid (severe) obesity due to excess calories; Z68.42 Body mass index [BMI] 45.0-49.9, adult; Z88.2 Allergy status to sulfonamides
CPT/HCPCS: 36415; 71046; 71275; 74175; 80048; 80076; 81003; 81015; 82043; 82306; 82550; 82553; 82570; 82607; 82962; 83036; 83735; 83880; 84100; 84439; 84443; 84484; 85025; 85379; 85610; 85730; 87086; 87088; 94640; G0378; G0379; J0456; J1170; J2405; Q9967

== ENCOUNTER 2019-02-27 18:42 | Emergency (ER) | payer OTHER ==
[2019-02-27] MEDS ORDERED: MECLIZINE HCL 12.5 MG TAB ONE (19:42)
[2019-02-27] MEDS ORDERED: NA CHLORIDE 0.9% 1,000 ML ONE (19:43)
[2019-02-27] MEDS ORDERED: ONDANSETRON 4 MG/2 ML VIAL ONE (19:43)
[2019-02-27 20:03] LABS: Absolute Lymphocytes (CBC) 2.1 K/uL (0.7-4.9); Basophils % 0.5 % (0-1.3); Hematocrit 41.2 % (36.0-45.0); Lymphocytes % 28.6 % (15.3-44.8); MPV 7.8 fL (7.6-11.3)
[2019-02-27 20:05] LABS: Protime INR 0.95
[2019-02-27 20:20] LABS: ALT/SGPT 27 U/L (12-78); AST/SGOT 16 U/L (15-37); Albumin 3.6 g/dL (3.4-5.0); Alkaline Phosphatase 88 U/L (45-117); BUN Blood Urea Nitrogen 18 mg/dL (7-18); Bicarbonate 31 mmol/L (21-32); Bilirubin Direct < 0.1 mg/dL (0-0.2); Bilirubin Total 0.3 mg/dL (0.2-1.0); Glucose Level 183 mg/dL (74-106); NT PRO-BNP 23 pg/mL (<125); Potassium 4.1 mmol/L (3.5-5.1); Protein, Total 7.6 g/dL (6.4-8.2); Sodium Level 139 mmol/L (136-145); Troponin (Emerg Dept Use Only) < 0.02 ng/mL (0.0-0.045)
[2019-02-27] MEDS ORDERED: DIAZEPAM 10 MG/2 ML INJ SYRINGE ONE (22:53)
[2019-02-27] MEDS ORDERED: NA CHLORIDE 0.9% 100 ML IV ONE (22:54)
--- NOTE | 2019-02-27 23:41 | EDPHYS ---
Physician Documentation [facility] Name: Cesia Rai Age: 59 yrs Sex: Female : 1960 Arrival Date: 02/27/2019 Time: 18:42 Bed 5 Private MD: Lobito Angel V ED Physician Sanjay Dueñas HPI: 02/27 19:25 This 59 yrs old Female presents to ER via Ambulatory with complaints of cp Dizziness, Nausea. 19:25 The patient presents with dizziness, feeling off balance, sense of spinning. Onset: The cp symptoms/episode began/occurred 3 day(s) ago, and became worse today. Associated signs and symptoms: Pertinent positives: nausea, Pertinent negatives: abdominal pain, chest pain, focal weakness, headache, syncope, vomiting. Severity of symptoms: in the emergency department the symptoms are unchanged despite home interventions. Patient's baseline: Neuro: alert and fully oriented, Motor: no deficits, Ambulation: walks without assistance, Speech: normal. 19:25 Modifying factors: the symptoms are aggravated by standing up, sitting up. cp Historical: - Allergies: 19:03 GABAPENTIN; aj1 19:03 Morphine; aj1 - Home Meds: 19:03 diclofenac sodium 25 mg Oral TbEC 1 tab 2 times per day [Active]; fentanyl [Active]; aj1 novalin 70/30 20 units BID [Active]; novalog U-100 as needed [Active]; ondansetron HCl 4 mg Oral tab 1 tabs 3 times per day [Active]; percoset 10/325 mg TID as needed [Active]; rosuvastatin 5 mg Oral tab 1 tab once daily [Active]; Synthroid 150 mcg Oral tab 1 tab once daily [Active]; Topamax 100 mg Oral tab 1 tab 2 times per day [Active]; tumeric 1000 mg BID [Active]; - PMHx: 19:03 Diabetes - NIDDM; necrotizing fascitis; neuropathy; Seizures; aj1 - Immunization history:: Flu vaccine is not up to date. - Social history:: Smoking status: Patient/guardian denies using tobacco. - Ebola Screening: : Patient denies travel to an Ebola-affected area in the 21 days before illness onset. ROS: 19:30 Constitutional: Negative for body aches, chills, fever, poor PO intake. cp 19:30 Eyes: Negative for injury, pain, redness, and discharge. cp 19:30 ENT: Negative for drainage from ear(s), ear pain, sore throat, difficulty swallowing, difficulty handling secretions. 19:30 Cardiovascular: Negative for chest pain, edema, palpitations. 19:30 Respiratory: Negative for cough, shortness of breath, wheezing. 19:30 Abdomen/GI: Positive for nausea, Negative for abdominal pain, vomiting, diarrhea, constipation, black/tarry stool, rectal bleeding. 19:30 Back: Negative for pain at rest, pain with movement, radiated pain. 19:30 Neuro: Positive for dizziness, Negative for altered mental status, gait disturbance, headache, loss of consciousness, syncope, weakness. 19:30 All other systems are negative. Exam: 19:21 ECG was reviewed by the Attending Physician. cp 19:35 Constitutional: The patient appears in no acute distress, alert, awake, cp non-diaphoretic, non-toxic, well developed, well nourished, obese. 19:35 Head/Face: Normocephalic, atraumatic. cp 19:35 Eyes: Pupils equal round and reactive to light, extra-ocular motions intact. Lids and cp lashes normal. Conjunctiva and sclera are non-icteric and not injected. Cornea within normal limits. Periorbital areas with no swelling, redness, or edema. ENT: Nares patent. No nasal discharge, no septal abnormalities noted. Tympanic membranes are normal and external auditory canals are clear. Oropharynx with no redness, swelling, or masses, exudates, or evidence of obstruction, uvula midline. Mucous membranes moist. Neck: Trachea midline, no thyromegaly or masses palpated, and no cervical lymphadenopathy. Supple, full range of motion without nuchal rigidity, or vertebral point tenderness. No Meningismus. Chest/axilla: Normal chest wall appearance and motion. Nontender with no deformity. No lesions are appreciated. 19:35 Cardiovascular: Rate: normal, Rhythm: regular, Heart sounds: murmur, not appreciated, cp rub, not appreciated, gallop, not appreciated, Edema: is not appreciated, JVD: is not appreciated. 19:35 Respiratory: the patient does not display signs of respiratory distress, Respirations: normal, no use of accessory muscles, no retractions, no splinting, no tachypnea, labored breathing, is not present, Breath sounds: are clear throughout, no decreased breath sounds, no stridor, no wheezing. 19:35 Abdomen/GI: Inspection: abdomen appears normal, Bowel sounds: active, all quadrants, Palpation: abdomen is soft and non-tender, in all quadrants. 19:35 Back: pain, is absent, ROM is normal. 19:35 Skin: no rash present. 19:35 Neuro: Orientation: to person, place \T\ time. Mentation: is normal, Cerebellar function: is grossly normal, Motor: moves all fours, strength is normal, Sensation: is normal. Vital Signs: 19:03 BP 147 / 104; Pulse 63; Resp 18; Temp 97.0(TE); Pulse Ox 99% on R/A; Weight 113.4 kg aj1 (R); Height 5 ft. 1 in. (154.94 cm) (R); Pain 0/10; 19:22 BP 157 / 90 LA Supine (auto/reg); Pulse 69; em1 19:24 BP 154 / 97 LA Sitting (auto/reg); Pulse 65; em1 19:27 BP 168 / 98 LA Standing (auto/reg); Pulse 73; em1 21:15 BP 131 / 79; Pulse 56; Resp 16 S; Pulse Ox 98% on R/A; bb 23:19 BP 127 / 67; Pulse 60; Resp 17; Pulse Ox 100% ; Pain 0/10; tl1 19:03 Body Mass Index 47.24 (113.40 kg, 154.94 cm) aj1 MDM: 19:20 Patient medically screened. 23:39 Data reviewed: vital signs, nurses notes, lab test result(s), EKG, radiologic studies, cp CT scan. 23:39 Counseling: I had a detailed discussion with the patient and/or guardian regarding: the cp historical points, exam findings, and any diagnostic results supporting the discharge/admit diagnosis, lab results, radiology results, the need for outpatient follow up, a neurologist, to return to the emergency department if symptoms worsen or persist or if there are any questions or concerns that arise at home. Response to treatment: the patient's symptoms have markedly improved after treatment, and as a result, I will discharge patient. ED course: VSS. Patient reports symptoms improved and is observed ambulating in ED w/o assistance. 02/27 19:38 Order name: Basic Metabolic Panel cp 02/27 19:38 Order name: CBC with Diff; Complete Time: 21:41 cp 02/27 19:38 Order name: LFT's; Complete Time: 21:41 cp 02/27 21:41 Interpretation: Normal except: GLOB 4.0; A/G 0.9. cp 02/27 19:38 Order name: Magnesium; Complete Time: 21:41 cp 02/27 19:38 Order name: NT PRO-BNP; Complete Time: 21:41 cp 02/27 19:38 Order name: PT-INR; Complete Time: 21:41 cp 02/27 19:38 Order name: Troponin (emerg Dept Use Only); Complete Time: 21:41 cp 02/27 21:42 Interpretation: Reviewed. cp 02/27 19:38 Order name: EKG; Complete Time: 19:39 cp 02/27 19:38 Order name: CT Head Brain wo Cont cp 02/27 19:39 Order name: Basic Metabolic Panel; Complete Time: 21:41 EDMS 02/27 21:41 Interpretation: Normal except: GLUC 183; GFR 55. cp 02/27 19:08 Order name: Orthostatics; Complete Time: 19:41 cp 02/27 19:38 Order name: Cardiac monitoring; Complete Time: 19:40 cp 02/27 19:38 Order name: EKG - Nurse/Tech; Complete Time: 19:40 cp 02/27 19:38 Order name: IV Saline Lock; Complete Time: 19:40 cp 02/27 19:38 Order name: Labs collected and sent; Complete Time: 19:40 cp 02/27 19:38 Order name: O2 Per Protocol; Complete Time: 19:40 cp 02/27 19:38 Order name: O2 Sat Monitoring; Complete Time: 19:40 cp EC:21 Rate is 63 beats/min. Rhythm is regular. MN interval is normal. QRS interval is normal. cp QT interval is normal. Interpreted by me. Reviewed by me. Administered Medications: 20:25 Drug: Zofran 4 mg Route: IVP; Infused Over: 2 mins; Site: right antecubital; tl1 21:15 Follow up: Response: No adverse reaction bb 20:25 Drug: Meclizine 50 mg Route: PO; tl1 21:15 Follow up: Response: No adverse reaction; Marked relief of symptoms bb 20:25 Drug: NS 0.9% 1000 ml Route: IV; Rate: 1000 ml/hr; Site: right antecubital; tl1 23:02 Drug: Diazepam 5 mg Route: IVP; Infused Over: 5 mins; Site: right antecubital; tl1 02/28 04:59 Follow up: Response: No adverse reaction; Marked relief of symptoms bb Disposition: 07:16 Co-signature as Attending Physician, Sanjay Dueñas MD. rn Disposition: 02/27/19 23:40 Discharged to Home. Impression: Dizziness and giddiness. - Condition is Stable. - Discharge Instructions: Dizziness, Vertigo. - Prescriptions for Meclizine 25 mg Oral Tablet - take 1 tablet by ORAL route every 8 hours As needed may take 1-2 tabs as directed; 30 tablet. Zofran 4 mg Oral Tablet - take 1 tablet by ORAL route every 12 hours As needed; 20 tablet. - Medication Reconciliation Form, Thank You Letter, Antibiotic Education, Prescription Opioid Use form. - Follow up: Gold Jones MD; When: 2 - 3 days; Reason: Recheck today's complaints. - Problem is new. - Symptoms have improved. Signatures: Dispatcher [employer] EDMS Karine Knox RN RN aj1 Dedra Wells RN RN Sanjay Youngblood MD MD rn Lasagna, Tonya, RN RN tl1 Jayson Corey PA PA cp Corrections: (The following items were deleted from the chart) 02/27 23:52 23:40 02/27/2019 23:40 Discharged to Home. Impression: Dizziness and giddiness. bb Condition is Stable. Forms are Medication Reconciliation Form, Thank You Letter, Antibiotic Education, Prescription Opioid Use. Follow up: Gold Jones; When: 2 - 3 days; Reason: Recheck today's complaints. Problem is new. Symptoms have improved. cp
--- NOTE | 2019-02-27 23:41 | ER ---
Nurse's Notes [facility] Name: Cesia Rai Age: 59 yrs Sex: Female : 1960 Arrival Date: 02/27/2019 Time: 18:42 Bed 5 Private MD: Lobito Angel V Diagnosis: Dizziness and giddiness Presentation: 02/27 18:59 Presenting complaint: Patient states: "I've been really dizzy when I get up or lay down aj1 it feels like everything its spinning. It makes me nauseous" Reports that she has been having this dizziness for the past 2 to 3 days. Transition of care: patient was not received from another setting of care. Onset of symptoms was February 2019. Risk Assessment: Do you want to hurt yourself or someone else? Patient reports no desire to harm self or others. Initial Sepsis Screen: Does the patient meet any 2 criteria? No. Patient's initial sepsis screen is negative. Does the patient have a suspected source of infection? No. Patient's initial sepsis screen is negative. Care prior to arrival: None. 18:59 Method Of Arrival: Ambulatory aj 18:59 Acuity: LUIS 3 aj1 Triage Assessment: 19:03 General: Appears in no apparent distress. uncomfortable, Behavior is calm, cooperative, aj1 appropriate for age. Pain: Denies pain. Neuro: Level of Consciousness is awake, alert, obeys commands, Oriented to person, place, time, situation, Reports dizziness. Cardiovascular: Patient's skin is warm and dry. Respiratory: Airway is patent Respiratory effort is even, unlabored, Respiratory pattern is regular, symmetrical. GI: Reports nausea. Historical: - Allergies: 19:03 GABAPENTIN; aj1 19:03 Morphine; aj1 - Home Meds: 19:03 diclofenac sodium 25 mg Oral TbEC 1 tab 2 times per day [Active]; fentanyl [Active]; aj1 novalin 70/30 20 units BID [Active]; novalog U-100 as needed [Active]; ondansetron HCl 4 mg Oral tab 1 tabs 3 times per day [Active]; percoset 10/325 mg TID as needed [Active]; rosuvastatin 5 mg Oral tab 1 tab once daily [Active]; Synthroid 150 mcg Oral tab 1 tab once daily [Active]; Topamax 100 mg Oral tab 1 tab 2 times per day [Active]; tumeric 1000 mg BID [Active]; - PMHx: 19:03 Diabetes - NIDDM; necrotizing fascitis; neuropathy; Seizures; aj1 - Immunization history:: Flu vaccine is not up to date. - Social history:: Smoking status: Patient/guardian denies using tobacco. - Ebola Screening: : Patient denies travel to an Ebola-affected area in the 21 days before illness onset. Screenin:18 Abuse screen: Denies threats or abuse. Denies injuries from another. Nutritional bb screening: No deficits noted. Tuberculosis screening: No symptoms or risk factors identified. Fall Risk None identified. Assessment: 19:18 General: Appears in no apparent distress. Behavior is calm, appropriate for age. bb General: Reports feeling dizzy for 3 days "the room is spinning". Neuro: Level of Consciousness is awake, alert, obeys commands, Oriented to person, place, time, situation. Cardiovascular: Heart tones S1 S2 present Capillary refill < 3 seconds Patient's skin is warm and dry. Pulses are all present. Edema is absent. Respiratory: Airway is patent Respiratory effort is even, unlabored, Respiratory pattern is regular, Breath sounds are clear bilaterally. GI: No signs and/or symptoms were reported involving the gastrointestinal system. Abdomen is obese. Derm: Skin is pink, warm \\T\\ dry. Musculoskeletal: Circulation, motion, and sensation intact. 20:30 Reassessment: Patient is alert, oriented x 3, equal unlabored respirations, skin bb warm/dry/pink. awaiting diagnostic results. 21:30 Reassessment: pt resting quietly, resp unlabored, family at bedside. bb 23:48 Reassessment: Patient is alert, oriented x 3, equal unlabored respirations, skin bb warm/dry/pink. 23:50 Reassessment: Patient is alert, oriented x 3, equal unlabored respirations, skin bb warm/dry/pink. pt verbalized understanding of and agrees to plan of care discharge instructions given pt ambulated with steady gait to exit accompanied by family. Vital Signs: 19:03 BP 147 / 104; Pulse 63; Resp 18; Temp 97.0(TE); Pulse Ox 99% on R/A; Weight 113.4 kg aj1 (R); Height 5 ft. 1 in. (154.94 cm) (R); Pain 0/10; 19:22 BP 157 / 90 LA Supine (auto/reg); Pulse 69; em1 19:24 BP 154 / 97 LA Sitting (auto/reg); Pulse 65; em1 19:27 BP 168 / 98 LA Standing (auto/reg); Pulse 73; em1 21:15 BP 131 / 79; Pulse 56; Resp 16 S; Pulse Ox 98% on R/A; bb 23:19 BP 127 / 67; Pulse 60; Resp 17; Pulse Ox 100% ; Pain 0/10; tl1 19:03 Body Mass Index 47.24 (113.40 kg, 154.94 cm) aj ED Course: 18:42 Patient arrived in ED. ag5 18:42 Lobito Angel MD is Private Physician. ag5 19:02 Triage completed. aj1 19:03 Arm band placed on Patient placed in an exam room. aj1 19:08 Jayson Corey PA is PHCP. cp 19:08 Sanjay Dueñas MD is Attending Physician. cp 19:18 Dedra Wells, LOWELL is Primary Nurse. bb 19:18 Patient has correct armband on for positive identification. Placed in gown. Bed in low bb position. Call light in reach. Side rails up X 1. Adult w/ patient. Pulse ox on. NIBP on. Warm blanket given. 19:56 CT completed. Patient tolerated procedure well. Patient moved back from CT. bq 19:58 CT Head Brain wo Cont In Process Unspecified. EDMS 23:40 Gold Jones MD is Referral Physician. cp 23:45 No provider procedures requiring assistance completed. IV discontinued, intact, bb bleeding controlled, No redness/swelling at site. Pressure dressing applied. Administered Medications: 20:25 Drug: Zofran 4 mg Route: IVP; Infused Over: 2 mins; Site: right antecubital; tl1 21:15 Follow up: Response: No adverse reaction bb 20:25 Drug: Meclizine 50 mg Route: PO; tl1 21:15 Follow up: Response: No adverse reaction; Marked relief of symptoms bb 20:25 Drug: NS 0.9% 1000 ml Route: IV; Rate: 1000 ml/hr; Site: right antecubital; tl1 23:02 Drug: Diazepam 5 mg Route: IVP; Infused Over: 5 mins; Site: right antecubital; tl1 02/28 04:59 Follow up: Response: No adverse reaction; Marked relief of symptoms bb Outcome: 02/27 23:40 Discharge ordered by . heydi 23:50 Discharged to home ambulatory, with family. bb 23:50 Condition: stable 23:50 Discharge instructions given to patient, Instructed on discharge instructions, follow up and referral plans. medication usage, Demonstrated understanding of instructions, follow-up care, medications, Prescriptions given X 2. 23:52 Patient left the ED. bb Signatures: Dispatcher [employer] EDKarine El RN RN aj1 Jackie Delaney Brenda, RN RN Clint Sifuentes em1 Ashley Sandoval RN RN tl1 Jayson Corey PA PA cp Gaskin, Katie ag5
[2019-02-28 00:42] VITALS: TEMP 97
[2019-02-28 00:48] VITALS: BP 127/67; O2SAT 100
--- NOTE | 2019-02-28 00:48 | RAD REPORT ---
EXAM DESCRIPTION: CT - Head Brain Wo Cont - 02/27/2019 7:57 pm CLINICAL HISTORY: dizziness COMPARISON: 2016 TECHNIQUE: Computed axial tomography of the head was obtained. IV contrast was not requested. All CT scans are performed using dose optimization technique as appropriate and may include automated exposure control or mA/KV adjustment according to patient size. FINDINGS: An intracranial bleed is not seen . The ventricles are normal in caliber. No extra-axial fluid collection is noted. Fluid within the sinuses/ mastoids is not seen. IMPRESSION: No acute intracranial abnormality is seen. If patient's symptoms persist MRI of the bra in would be recommended.
--- NOTE | 2019-03-01 09:53 | EKG ---
Test Date: 2019-02-27 Test Time: 19:16:38 Lidder: RONEY MEASUREMENT RESULTS: Intervals: Rate: 63 UT: 168 QRSD: 68 QT: 364 QTc: 372 Crowley: P: 43 UT: 168 QRS: 15 T: 20 INTERPRETIVE STATEMENTS: Normal sinus rhythm cannot rule out Septal infarct, age undetermined Abnormal ECG Compared to ECG 09/30/2018 05:33:47 Myocardial infarct finding now present Electronically Signed On 03-01-19 09:53:16 CDT by Jaylan Sykes
== END 2019-02-27 23:52 | disposition home or self-care (01) ==
LOC: ER 18:42
DX: R42 Dizziness and giddiness (principal); E11.9 Type 2 diabetes mellitus without complications; Z88.6 Allergy status to analgesic agent
CPT/HCPCS: 93005; 85025; 80048; 36415; 83735; 85610; 80076; 84484; 83880; 70450; 96375; 96374; 99284; J3360; J7030; J2405; J8597

== ENCOUNTER 2020-07-19 07:12 | Day surgery (SDC) | payer OTHER ==
--- NOTE | 2020-07-18 15:52 | RAD REPORT ---
EXAM DESCRIPTION: RAD - Chest Pa And Lat (2 Views) - 07/18/2020 3:12 pm CLINICAL HISTORY: PREOP, patient pending soft tissue mass removal COMPARISON: December 2018 TECHNIQUE: Frontal and lateral views of the chest were obtained. FINDINGS: The lungs are clear. Interstitial pattern matches comparison. Heart size is normal and ce ntral vasculature is within normal limits. No pleural effusion or pneumothorax seen. No acute bony finding noted. No aortic abnormality. IMPRESSION: No acute cardiopulmonary process. No significant change from comparison study.
[2020-07-18 16:37] LABS: Absolute Lymphocytes (CBC) 2.5 K/uL (0.7-4.9); Basophils % 0.2 % (0-1.3); Lymphocytes % 24.9 % (15.3-44.8); MPV 8.1 fL (7.6-11.3); RBC Red Blood Cell Count 4.63 M/uL (3.86-4.86)
[2020-07-18 16:45] LABS: Potassium 4.5 mmol/L (3.5-5.1)
[2020-07-19] MEDS ORDERED: NA CHLORIDE 0.9% 1,000 ML ONE (07:57)
[2020-07-19] MEDS ORDERED: MIDAZOLAM HCL 2 MG/2 ML INJ ONE (08:45)
[2020-07-19] MEDS ORDERED: propofoL 200 MG/20 ML VIAL IV ONE (08:45)
[2020-07-19] MEDS ORDERED: FENTANYL CITR 100 MCG/2 ML ONE (08:45)
[2020-07-19] MEDS ORDERED: LIDOCAINE 1% MPF 5 ML VIAL ONE (08:45)
[2020-07-19] MEDS: CEFAZOLIN/SWI 1gm 1 GM/10 ML SYR ONE ×2 (08:56→09:20)
[2020-07-19] MEDS ORDERED: ONDANSETRON 4 MG/2 ML VIAL ONE (09:30)
--- NOTE | 2020-07-19 10:00 | P.BOP ---
Preoperative diagnosis: Right groin cellulitis, non healing infected wound, abscess Postoperative diagnosis: same Primary procedure: Excisional debridement R groin non healing infected woundwith abcess drain Secondary procedure: 5x3cm Estimated blood loss: <10cc Specimen: culture tissue Anesthesia: General Complications: None Transferred to: Recovery Room Condition: Good
[2020-07-19] MEDS ORDERED: KETOROLAC 30 MG/ML INJ ONE (10:03)
[2020-07-19] MEDS: HYDROMORPHONE HCL 1 MG/ML INJ ONE ×4 (10:22→10:52)
--- NOTE | 2020-07-19 10:40 | OP ---
Date of Procedure: 07/19/2020 Surgeon: Devan Hodges MD Diagnoses: Right groin cellulitis, abscess, nonhealing infected wound. Postoperative Diagnoses: Right groin cellulitis, abscess, nonhealing infected wound. Procedure: Excisional debridement of right groin nonhealing infected wound with abscess drainage abo ut 5 x 3 cm. Specimen: Culture tissue. Anesthesia: General plus local. Indications: This is a case of a 60-year-old patient comes to us with a necrotic wound on the right groin region with drainage and cellulitis. The patient had a similar episode many years ago a little bit higher area and she developed necrotizing fasciitis and Bruna gangrene and she was very ward rned at this time and she wants all those areas to be drained. This moment, I agree. The benefits, alternatives, and risks of excisional debridement and drainage of an abscess of the right groin fully explained which include, but not limited to infection, bleeding, damage to adjacent structures, anes thesia complication, nonhealing wound, NV, and even . She also understands this may not relieve the symptoms. She might need more than one surgical intervention. The area of concern was marked b y me and the patient in the holding room. The patient and feel very comfortable doing the dr cash changes. Description Of Procedure: The patient was brought to the operating room and placed in supine positio n. Anesthesia was done without complication. The patient was placed in lithotomy position with prop er protection. Time-out was called. After that, I proceeded to remove an area of skin that leading to an abscess that area and include many pustules. The necrotic tissue was removed. The area was pr ofusely irrigated. Healthy tissue looks underneath. Loculations were explored open and it was irrig ated. Hemostasis was obtained and the area was packed with wet-to-dry dressing after putting a local anesthetic. The patient tolerated the procedure well. The patient was sent to Recovery in stable c ondition. Disposition: Home. Activity: As tolerated. Instructions: No heavy lifting. Bactroban to the area and dry gauze daily. May take a shower with dressings off. Medication, she is not taking the Percocet at this moment. So, we are going to give her Ultracet. She was advised if she takes Percocet, she should not be taking Ultracet. We are cristobal g to use Bactrim to the area daily. The patient's feels comfortable with it. We will see th e patient in 1 week from now. IZABELA Voice ID: [id number] Report ID: [id number]
[2020-07-19 10:54] VITALS: TEMP 97.8
[2020-07-19] MEDS ORDERED: TRAMADOL 37.5mg/APAP 325mg PER TAB ONE (12:09)
[2020-07-19 12:59] VITALS: O2SAT 100
[2020-07-19 13:00] VITALS: BP 114/53
--- NOTE | 2020-07-20 05:40 | EKG ---
Test Date: 2020-07-18 Test Time: 15:12:42 Dry Chain Worker: CHONG MEASUREMENT RESULTS: Intervals: Rate: 72 IA: 156 QRSD: 68 QT: 362 QTc: 396 [place]: P: 35 IA: 156 QRS: 19 T: 1 INTERPRETIVE STATEMENTS: Normal sinus rhythm Normal ECG Compared to ECG 02/27/2019 19:16:38 Myocardial infarct finding no longer present Electronically Signed On 07-20-20 05:36:03 BIT AND SHANK DEPARTMENT SUPERVISOR by Clif Lara
== END 2020-07-19 12:35 | disposition home or self-care (01) ==
LOC: OR 07:12
PROVIDERS: ATTEND Surgery
PROC: 0JBC0ZZ Excision of Pelvic Region Subcutaneous Tissue and Fascia, Open Approach (ICD-10-PCS; principal; 2020-07-19 08:45)
DX: L02.214 Cutaneous abscess of groin (principal); L03.314 Cellulitis of groin; I96 Gangrene, not elsewhere classified; Z20.822 Contact with and (suspected) exposure to COVID-19
CPT/HCPCS: 93005; 87070; 85025; 80048; 36415; 87205; 82947 ×2; 88304; 87075; 87077; 87186; 71046; 11042; U0002; J2704; J2250; J3010; J1170 ×2; J0690; J7030; J2405

== ENCOUNTER 2020-08-23 11:06 | Day surgery (SDC) | payer OTHER ==
[2020-08-23 11:20] LABS: Basophils % 0.4 % (0-1.3); Hematocrit 39.3 % (36.0-45.0); Lymphocytes % 20.7 % (15.3-44.8); MPV 7.9 fL (7.6-11.3); RBC Red Blood Cell Count 4.58 M/uL (3.86-4.86)
[2020-08-23 11:46] LABS: Potassium 4.2 mmol/L (3.5-5.1)
[2020-08-23] MEDS ORDERED: Ringers Lactate 1,000 ML IV ONE (11:52)
[2020-08-23] MEDS ORDERED: CEFAZOLIN/SWI 1gm 1 GM/10 ML SYR ONE (11:52)
[2020-08-23] MEDS ORDERED: ACETAMINOPHEN 500 MG TAB PO ONE (12:00)
[2020-08-23] MEDS ORDERED: NA CIT/CITRIC AC 30 ML ORAL UDC PO ONE (12:00)
[2020-08-23] MEDS ORDERED: CELECOXIB 100 MG CAPSULE PO ONE (12:00)
[2020-08-23] MEDS ORDERED: FENTANYL CITR 100 MCG/2 ML ONE (12:12)
[2020-08-23] MEDS ORDERED: dexAMETHasone 10 MG/ML VIAL ONE (12:12)
[2020-08-23] MEDS ORDERED: propofoL 200 MG/20 ML VIAL IV ONE (12:12)
[2020-08-23] MEDS ORDERED: MIDAZOLAM HCL 2 MG/2 ML INJ ONE (12:12)
[2020-08-23] MEDS ORDERED: KETOROLAC 30 MG/ML INJ ONE (12:12)
[2020-08-23] MEDS ORDERED: LIDOCAINE 2% MPF 5 ML VIAL ONE (12:13)
[2020-08-23] MEDS ORDERED: CELECOXIB 100 MG CAPSULE ONE (12:14)
[2020-08-23] MEDS ORDERED: ACETAMINOPHEN 500 MG TAB ONE (12:14)
[2020-08-23] MEDS ORDERED: ONDANSETRON 4 MG/2 ML VIAL ONE ×2 (12:15→13:39)
[2020-08-23] MEDS ORDERED: NA CIT/CITRIC AC 30 ML ORAL UDC ONE (12:15)
--- NOTE | 2020-08-23 12:46 | P.BOP ---
Preoperative diagnosis: infected suprapubic mass with cellulitis and abscess Postoperative diagnosis: same Primary procedure: Excisional biospsy of infected suprapubic mass with abscess drainage Secondary procedure: 5x4 cm Estimated blood loss: <10cc Specimen: mass / culture Findings: infected mass with abscess Anesthesia: General Complications: None Transferred to: Recovery Room Condition: Good
[2020-08-23] MEDS ORDERED: HYDROMORPHONE HCL 1 MG/ML INJ ONE (13:39)
[2020-08-23] MEDS ORDERED: HYDROCODONE/APAP 7.5/325 MG TAB ONE (14:14)
[2020-08-23 15:04] VITALS: BP 132/61; TEMP 98; O2SAT 99
--- NOTE | 2020-08-23 15:20 | OP ---
Date of Procedure: 08/23/2020 Surgeon: Devan Hodges MD Preoperative Diagnosis: Infected suprapubic mass with cellulitis and abscess. Postoperative Diagnosis: Infected suprapubic mass with cellulitis and abscess. Procedure: Excisional biopsy of infected suprapubic mass with abscess drainage about 5 x 4 cm. Finding: Infected mass with abscess. Anesthesia: General plus local. Indications: This is the case of a 60-year-old patient with history of multiple infections in her wili dy. At one point, she even had a life-threatening disease for near gangrene as she described over th e groin area. Now, she developed recently a new area right whether she has a Bruna gangrene befor e. She is so concerned. She has cellulitis. It is tender. It is going to get purulent discharge a nd she wants drainage and that lump removed. The benefits, alternatives, and risks of excisional bio psy of infected mass with abscess drainage were explained to the patient, which include, but not limi callie to infection, bleeding, damage to adjacent structures, anesthesia complication, nonhealing wound, DC, and even . She also understands this may not relieve the symptoms. She might need more th an one surgical intervention. She understood, signed a consent. The area of concern was marked by edgard lam and the patient in the holding room. Procedure In Detail: The patient was brought to the operating room, placed in supine position. Anes thesia was done without complication. Right groin area was prepped and draped in a sterile fashion. Local anesthesia was applied after time-out. Then, after that, excision was done of the necrotic ti ssue all the way down to subcutaneous tissue. There was a mass effect in that region with abscess wi th multiple loculations. They were explored and opened and drained. Cultures were obtained. Area w as irrigated. Hemostasis was obtained and the area was covered with wet-to-dry dressing. The patien t tolerated the procedure well. The patient was sent to recovery in stable condition. ELIZABETH/ABRAHAM Voice ID: [id number] Report ID: [id number]
--- NOTE | 2020-08-23 15:26 | DS ---
Diagnosis: Infected suprapubic mass with cellulitis and abscess. Procedure: Excisional biopsy of infected with suprapubic mass with abscess drainage. Disposition: Home. Activity: As tolerated. No heavy lifting. Plan: Follow up in my office in 1 week. Call for appointment at [phone]. Wet-to-dry dressing benjamin nicholson, her is doing that and he feels very comfortable with it. She is already has Cipro as an a ntibiotic since she takes chronic pain medications. She is going to use that one. ELIZABETH/ABRAHAM Voice ID: [id number] Report ID: [id number]
== END 2020-08-23 14:50 | disposition home or self-care (01) ==
LOC: OR 11:06
PROVIDERS: ATTEND Surgery
PROC: 0JBC0ZZ Excision of Pelvic Region Subcutaneous Tissue and Fascia, Open Approach (ICD-10-PCS; principal; 2020-08-23 15:00)
DX: L72.0 Epidermal cyst (principal); I96 Gangrene, not elsewhere classified; Z20.822 Contact with and (suspected) exposure to COVID-19
CPT/HCPCS: 87070; 85025; 80048; 36415; 87205 ×2; 82947; 87185; 88304; 87075; 87077 ×2; 87186 ×2; 11042; U0003; J2704; J2250; J1170; J0690; J7120; J2405 ×2; 88305; J1100; J3010

== ENCOUNTER 2020-11-08 08:13 | Day surgery (SDC) | payer OTHER ==
[2020-11-08 08:32] LABS: Basophils % 0.4 % (0-1.3); Hematocrit 38.5 % (36.0-45.0); Lymphocytes % 30.1 % (15.3-44.8); MPV 8.6 fL (7.6-11.3); RBC Red Blood Cell Count 4.39 M/uL (3.86-4.86)
[2020-11-08] MEDS ORDERED: Ringers Lactate 1,000 ML IV ONE (09:12)
[2020-11-08] MEDS ORDERED: CEFAZOLIN/SWI 1gm 1 GM/10 ML SYR ONE (09:49)
[2020-11-08] MEDS ORDERED: ONDANSETRON 4 MG/2 ML VIAL ONE ×2 (10:12→10:45)
[2020-11-08] MEDS ORDERED: SCOPOLAMINE HYDROBROMIDE PATCH TD ONE (10:12)
[2020-11-08] MEDS ORDERED: CELECOXIB 100 MG CAPSULE ONE (10:25)
[2020-11-08] MEDS ORDERED: ACETAMINOPHEN 500 MG TAB ONE (10:25)
[2020-11-08] MEDS ORDERED: propofoL 200 MG/20 ML VIAL IV ONE (10:44)
[2020-11-08] MEDS ORDERED: FENTANYL CITR 100 MCG/2 ML ONE (10:44)
[2020-11-08] MEDS ORDERED: MIDAZOLAM HCL 2 MG/2 ML INJ ONE (10:44)
[2020-11-08] MEDS ORDERED: LIDOCAINE 2% MPF 5 ML VIAL ONE (10:45)
[2020-11-08] MEDS ORDERED: dexAMETHasone 10 MG/ML VIAL ONE (10:45)
--- NOTE | 2020-11-08 11:29 | P.BOP ---
Preoperative diagnosis: PErineal abscess, hx or perineal fornier gangrene Postoperative diagnosis: same Primary procedure: incision, drainage and debridement of tender Perineal abscess 4x3 cm Estimated blood loss: <10cc Specimen: culture , devitalized tissue Findings: multiple loculation Anesthesia: General Complications: None Transferred to: Recovery Room Condition: Good
[2020-11-08] MEDS ORDERED: KETOROLAC 30 MG/ML INJ ONE (11:46)
[2020-11-08] MEDS: HYDROMORPHONE HCL 1 MG/ML INJ ONE ×2 (12:00→12:05)
[2020-11-08 13:25] VITALS: BP 141/90; TEMP 97.9; O2SAT 98
== END 2020-11-08 12:40 | disposition home or self-care (01) ==
LOC: OR 08:13
PROVIDERS: ATTEND Surgery
PROC: 0W9N0ZZ Drainage of Female Perineum, Open Approach (ICD-10-PCS; principal; 2020-11-08 12:00)
DX: L02.215 Cutaneous abscess of perineum (principal); E11.9 Type 2 diabetes mellitus without complications; I10 Essential (primary) hypertension; E78.00 Pure hypercholesterolemia, unspecified; I51.9 Heart disease, unspecified; Z20.822 Contact with and (suspected) exposure to COVID-19
CPT/HCPCS: 56405; 87070; 85025; 80048; 36415; 87205; 82947; 88304; 87075; 87077; 87186; U0003; J2704; J2250; J3010; J1170; J0690; J7120; J2405 ×2; 88305; J1100

== ENCOUNTER 2021-06-20 08:18 | Day surgery (SDC) | payer OTHER ==
[2021-06-20] MEDS ORDERED: CEFAZOLIN/NS 1gm 1 GM/50 ML BAG ONE (08:46)
[2021-06-20] MEDS ORDERED: NA CHLORIDE 0.9% 1,000 ML ONE (08:46)
[2021-06-20 08:50] LABS: Hematocrit 40.2 % (36.0-45.0); Lymphocytes % 16.9 % (15.3-44.8); MPV 8.5 fL (7.6-11.3); RBC Red Blood Cell Count 4.43 M/uL (3.86-4.86)
[2021-06-20 09:35] LABS: Potassium 4.1 mmol/L (3.5-5.1)
[2021-06-20] MEDS ORDERED: MIDAZOLAM HCL 2 MG/2 ML INJ ONE (10:52)
[2021-06-20] MEDS ORDERED: propofoL 200 MG/20 ML VIAL IV ONE (10:52)
[2021-06-20] MEDS ORDERED: FENTANYL CITR 100 MCG/2 ML ONE ×2 (10:52→12:12)
[2021-06-20] MEDS ORDERED: ONDANSETRON 4 MG/2 ML VIAL ONE (10:53)
[2021-06-20] MEDS ORDERED: dexAMETHasone 10 MG/ML VIAL ONE (10:53)
[2021-06-20] MEDS ORDERED: LIDOCAINE 2% MPF 5 ML VIAL ONE (10:53)
[2021-06-20] MEDS ORDERED: KETOROLAC 30 MG/ML INJ ONE ×2 (10:53→12:26)
--- NOTE | 2021-06-20 11:48 | P.BOP ---
Preoperative diagnosis: infected abd LLQ infected mass 3.5 x 3 cm Postoperative diagnosis: same Secondary procedure: Wide excision of infected abd LLQ infected mass 3.5 x 3 cm Estimated blood loss: <10cc Specimen: mass and culture Findings: infected abd LLQ infected mass with purulent drainage Anesthesia: General Complications: None Transferred to: Recovery Room Condition: Good
[2021-06-20] MEDS ORDERED: HYDROMORPHONE HCL 1 MG/ML INJ ONE (12:37)
[2021-06-20 12:42] VITALS: TEMP 98.1; O2SAT 100
[2021-06-20 13:49] VITALS: BP 117/60
== END 2021-06-20 13:25 | disposition home or self-care (01) ==
LOC: OR 08:18
PROVIDERS: ATTEND Surgery
PROC: 0JB80ZZ Excision of Abdomen Subcutaneous Tissue and Fascia, Open Approach (ICD-10-PCS; principal; 2021-06-20 11:00)
DX: L72.0 Epidermal cyst (principal); I96 Gangrene, not elsewhere classified; Z20.822 Contact with and (suspected) exposure to COVID-19
CPT/HCPCS: 87070; 85025; 80048; 36415; 87205; 82947 ×2; 88305; 87075; 11404; U0003; J2704; J2250; J3010; J1100; J1170; J0690; J7030; J2405

== ENCOUNTER 2021-11-12 08:18 | Day surgery (SDC) | payer OTHER ==
--- NOTE | 2021-11-12 08:34 | RAD REPORT ---
EXAM DESCRIPTION: RAD - Chest Pa And Lat (2 Views) - 11/12/2021 8:18 am CLINICAL HISTORY: Pre op pending abscess removal COMPARISON: Two view chest 07/18/2020 TECHNIQUE: Frontal and lateral views of the chest were obtained. FINDINGS: The lungs are clear. Interstitial pattern matches comparison. Minimal lung base scarring or atelectasis. Heart size is normal and central vasculature is within normal limits. No pleural eff usion or pneumothorax seen. No acute bony finding noted. No aortic abnormality. IMPRESSION: No acute cardiopulmonary process. No significant change from comparison study.
[2021-11-12 08:36] LABS: Absolute Lymphocytes (CBC) 1.9 K/uL (0.7-4.9); Hematocrit 38.3 % (36.0-45.0); MPV 7.7 fL (7.6-11.3); RBC Red Blood Cell Count 4.46 M/uL (3.86-4.86)
[2021-11-12] MEDS ORDERED: Ringers Lactate 1,000 ML IV ONE (08:46)
[2021-11-12] MEDS: CEFAZOLIN SODIUM 1 GM/VIAL ONE ×2 (09:40→10:15)
[2021-11-12] MEDS ORDERED: ACETAMINOPHEN 500 MG TAB ONE (09:46)
[2021-11-12] MEDS ORDERED: propofoL 200 MG/20 ML VIAL IV ONE (09:47)
[2021-11-12] MEDS ORDERED: LIDOCAINE 1% MPF 5 ML VIAL ONE (09:48)
[2021-11-12] MEDS ORDERED: MIDAZOLAM HCL 2 MG/2 ML INJ ONE (09:48)
[2021-11-12] MEDS ORDERED: FENTANYL CITR 100 MCG/2 ML ONE (09:48)
[2021-11-12 09:54] LABS: Potassium 4.2 mmol/L (3.5-5.1)
[2021-11-12] MEDS ORDERED: CELECOXIB 100 MG CAPSULE ONE (09:57)
[2021-11-12] MEDS ORDERED: dexAMETHasone 10 MG/ML VIAL ONE (10:40)
[2021-11-12] MEDS ORDERED: KETOROLAC 30 MG/ML INJ ONE (10:40)
[2021-11-12] MEDS ORDERED: ONDANSETRON 4 MG/2 ML VIAL ONE (10:43)
--- NOTE | 2021-11-12 10:55 | P.BOP ---
Preoperative diagnosis: Right perineal infected subQ mass Postoperative diagnosis: same Primary procedure: Excisional biopsy of Right perineal infected subQ mass 2.5x2cm Estimated blood loss: <10cc Specimen: culture, mass Findings: as above Anesthesia: General Complications: None Transferred to: Recovery Room Condition: Good
[2021-11-12] MEDS: HYDROMORPHONE HCL 1 MG/ML INJ ONE ×3 (11:07→11:14)
[2021-11-12] MEDS ORDERED: HYDROMORPHONE HCL 1 MG/ML INJ ONE (11:12)
[2021-11-12] MEDS ORDERED: TRAMADOL 37.5mg/APAP 325mg PER TAB PO ONE (11:16)
--- NOTE | 2021-11-12 11:50 | EKG ---
Test Date: 2021-11-12 Test Time: 07:51:36 Location Director: TABBY MEASUREMENT RESULTS: Intervals: Rate: 56 PA: 160 QRSD: 70 QT: 396 QTc: 382 [place]: P: 64 PA: 160 QRS: 40 T: 62 INTERPRETIVE STATEMENTS: Sinus bradycardia Low voltage QRS Borderline ECG Compared to ECG 07/18/2020 15:12:42 Low QRS voltage now present Sinus rhythm no longer present Electronically Signed On 11-12-21 11:50:01 CDT by Clif Lara
[2021-11-12 11:58] VITALS: BP 122/64; TEMP 96.6; O2SAT 94
[2021-11-12] MEDS ORDERED: TRAMADOL 37.5mg/APAP 325mg PER TAB ONE (11:59)
--- NOTE | 2021-11-12 13:22 | OP ---
Date of Procedure: 11/12/2021 Surgeon: Devan Hodges MD Preoperative Diagnosis: Infected subcutaneous mass in right perineal area 2.5 x 2 cm with abscess. Postoperative Diagnosis: Infected subcutaneous mass in right perineal area 2.5 x 2 cm with abscess. Procedure: Excisional biopsy of right perineal infected subcutaneous mass with drainage of an absces s. Anesthesia: General plus local. Complications: None. Estimated Blood Loss: Less than 10 cc. Packing: Iodoform packing. Indication: This is the case of a 61-year-old patient, known by us due to history of frequent perine al and suprapubic and abdominal wall abscess and infected subcutaneous mass. 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 In the ED, she had infected mass in that region with purulent discharge track ing into the lady. The patient offered incision and drainage and excisional biopsy of infected subcu taneous mass with benefits, alternatives, and risks including, but not limited to infection, bleeding , damage to adjacent structures, anesthesia complication, recurrence, [place], and even . She also u nderstands this may not relieve any symptoms. She might need more than one surgical intervention. S he understood, signed a consent. The area of concern was marked by me and the patient in the holding room. Procedure In Detail: The patient was brought to the operating room, placed in supine position. Anes thesia was done without complication. Right perineal area was prepped and draped in the usual steril e fashion. We proceeded to probe the area of the wound that goes medially into the labia. So, we pr oceeded then to remove the area of concern removing the entire inflammatory mass from that region hans n to subcutaneous tissue. Area was irrigated. Hemostasis was obtained. Before that, cultures were obtained. We do not see that is going into the vaginal or anal area. The area was irrigated, hemost asis was obtained, and the area was packed with iodoform packing. The patient tolerated the procedur e well. Local anesthesia was applied. The patient's patient was sent to recovery in stable conditio n. ELIZABETH/ABRAHAM Voice ID: [id number] Report ID: [id number]
--- NOTE | 2021-11-12 13:28 | DS ---
Date of Discharge: 11/12/2021 Diagnosis: Infected right perineal subcutaneous mass with abscess. Procedure: Excisional biopsy of infected right perineal subcutaneous mass with abscess drainage. Disposition: Home. Activity: As tolerated. No heavy lifting. Plan: Follow up in my office in 1 week. Call for appointment at [phone]. The feels comfor table doing dressing changes. We are going to proceed with wet-to-dry daily. ELIZABETH/ABRAHAM Voice ID: [id number] Report ID: [id number]
== END 2021-11-12 12:07 | disposition home or self-care (01) ==
LOC: OR 08:18
PROVIDERS: ATTEND Surgery
PROC: 0WBN0ZZ Excision of Female Perineum, Open Approach (ICD-10-PCS; principal; 2021-11-12 10:45)
DX: L72.0 Epidermal cyst (principal); L02.215 Cutaneous abscess of perineum; Z20.822 Contact with and (suspected) exposure to COVID-19
CPT/HCPCS: 93005; 87070; 85025; 80048; 36415; 87205; 88304; 87075; 71046; 11423; U0003; J2704; J2250; J3010; J1100; J1170; J7120; J2405; J0690

== ENCOUNTER 2022-02-06 07:01 | Day surgery (SDC) | payer OTHER ==
[2022-02-05 15:02] LABS: Absolute Lymphocytes (CBC) 2.6 K/uL (0.7-4.9); Hematocrit 41.6 % (36.0-45.0); Lymphocytes % 32.7 % (15.3-44.8); MCV 88.4 fL (80-100); MPV 7.7 fL (7.6-11.3); RBC Red Blood Cell Count 4.71 M/uL (3.86-4.86)
[2022-02-05 15:19] LABS: Potassium 4.2 mmol/L (3.5-5.1)
[2022-02-05 15:31] LABS: SARS-CoV-2 Antigen Rapid Res Negative (Negative)
[2022-02-06] MEDS ORDERED: Ringers Lactate 1,000 ML IV ONE (07:17)
[2022-02-06] MEDS ORDERED: CEFAZOLIN SODIUM 1 GM/VIAL ONE (07:17)
[2022-02-06] MEDS ORDERED: propofoL 200 MG/20 ML VIAL IV ONE (08:26)
[2022-02-06] MEDS ORDERED: FENTANYL CITR 100 MCG/2 ML ONE (08:27)
[2022-02-06] MEDS ORDERED: LIDOCAINE 1% MPF 5 ML VIAL ONE (08:29)
[2022-02-06] MEDS ORDERED: MIDAZOLAM HCL 2 MG/2 ML INJ ONE (08:29)
[2022-02-06] MEDS ORDERED: ONDANSETRON 4 MG/2 ML VIAL ONE ×3 (08:30→09:54)
[2022-02-06] MEDS ORDERED: dexAMETHasone 4 MG/ML VIAL ONE (09:10)
--- NOTE | 2022-02-06 09:24 | P.BOP ---
Preoperative diagnosis: infected tender left axillary mass Postoperative diagnosis: same Primary procedure: Excisional biopsy of infected tender left axillary mass 3x2cm Grain Trader: LEANDER WATTS (PRICING SPECIALIST) Estimated blood loss: <5cc Specimen: mass Findings: mass Anesthesia: General Complications: None Transferred to: Recovery Room Condition: Good
[2022-02-06] MEDS ORDERED: EPHEDRINE SULF 50 MG/ML VIAL ONE (09:30)
[2022-02-06] MEDS: HYDROMORPHONE HCL 1 MG/ML INJ ONE ×2 (09:45→09:50)
[2022-02-06] MEDS ORDERED: HYDROMORPHONE HCL 1 MG/ML INJ ONE (10:04)
[2022-02-06] MEDS ORDERED: HYDROCODONE/APAP 10/325 TAB PO ONE (10:17)
[2022-02-06 10:23] VITALS: BP 113/50; TEMP 97.1; O2SAT 100
[2022-02-06] MEDS ORDERED: HYDROCODONE/APAP 10/325 TAB ONE (10:28)
--- NOTE | 2022-02-06 14:37 | OP ---
Date of Procedure: 02/06/2022 Surgeon: Devan Hodges MD Unemployment Examiner: Antonette Diehl. Preoperative Diagnosis: Infected left axillary subcutaneous mass. Postoperative Diagnosis: Infected left axillary subcutaneous mass. Procedure: Excisional biopsy of left axillary subcutaneous mass 3 x 2 cm Estimated Blood Loss: Less than 10 mL. Specimen: Mass. Finding: Mass, subcutaneous. Indication: This is the case of a female, who comes to us with red and erythematosus axillary mass. She was started on antibiotics, looked like it was increasing in size, so she wants that excised. T he possibility of a lymph node cyst most likely is infected cyst. She preferred to have the area alexx sed if possible. She understands the benefits, alternative, and risks of excisional biopsy of axilla ry mass, which include, but not limited to infection, bleeding, damage to adjacent structures, anesth esia complication, recurrence, [place], and even . She also understands this may require wound care. She started antibiotics by mouth already. She has some Bactrim already available. If today we fin d out that the area does not have any pus, we might be able to approximate knowing that if in the nex t few days clinically she does not improve, we may have to remove the stitches and just to do wet-to- dry dressing. She understood. She wants that planned. The area marked by me and the patient in the holding room. Procedure In Detail: The patient was brought to the operating room, placed in supine position. Anes thesia was done without complication. The left axillary area was prepped and draped in the usual eliot rile fashion. Local anesthesia was applied followed by a wedge incision of the skin all the way down to subcutaneous tissue. Mass was identified, completely excised. I did not see purulent discharge deep to the mass, so we were able to irrigate the area profusely and then proceeded to close this wit h chromic and nylon stitches. The patient tolerated the procedure well. Hemostasis was obtained bef ore closure. The patient was sent to recovery in stable condition. ELIZABETH/ABRAHAM Voice ID: [id number] Report ID: [id number]
--- NOTE | 2022-02-06 14:37 | DS ---
Date of Discharge: 02/06/2022 Diagnosis: Infected tender left axillary mass. Procedure: Excisional biopsy of infected tender left axillary mass. Disposition: Home. Activity: As tolerated. No heavy lifting. Plan: Followup in my office in 1 week. Call for appointment at [phone]. Medications: See orders. ELIZABETH/MODL Voice ID: [id number] Report ID: [id number]
== END 2022-02-06 11:00 | disposition home or self-care (01) ==
LOC: OR 07:01
PROVIDERS: ATTEND Surgery
PROC: 0JBF0ZZ Excision of Left Upper Arm Subcutaneous Tissue and Fascia, Open Approach (ICD-10-PCS; principal; 2022-02-06 08:45)
DX: L72.0 Epidermal cyst (principal); Z20.822 Contact with and (suspected) exposure to COVID-19; E11.9 Type 2 diabetes mellitus without complications; E03.9 Hypothyroidism, unspecified; R56.9 Unspecified convulsions
CPT/HCPCS: 85025; 80048; 36415; 88304; 87811; 11403; J2704; J1100; J2001; J2250; J3010; J1170 ×2; J7120; J2405 ×3; J0690

== ENCOUNTER 2022-03-20 08:40 | Day surgery (SDC) | payer OTHER ==
[2022-03-20] MEDS ORDERED: Ringers Lactate 1,000 ML IV ONE (09:24)
[2022-03-20 09:42] LABS: Absolute Lymphocytes (CBC) 1.9 K/uL (0.7-4.9); Lymphocytes % 26.6 % (15.3-44.8); MCV 89.1 fL (80-100); MPV 7.6 fL (7.6-11.3); RBC Red Blood Cell Count 4.59 M/uL (3.86-4.86)
[2022-03-20 09:44] LABS: Potassium 4.2 mmol/L (3.5-5.1)
[2022-03-20] MEDS ORDERED: MIDAZOLAM HCL 2 MG/2 ML INJ ONE (10:45)
[2022-03-20] MEDS ORDERED: LIDOCAINE 2% MPF 5 ML VIAL ONE (10:45)
[2022-03-20] MEDS ORDERED: ONDANSETRON 4 MG/2 ML VIAL ONE ×2 (10:45→11:47)
[2022-03-20] MEDS ORDERED: propofoL 200 MG/20 ML VIAL IV ONE (10:45)
[2022-03-20] MEDS ORDERED: CIPROFLOXACIN 400mg IV 400 MG/200 ML BAG IV ONE (10:51)
[2022-03-20] MEDS ORDERED: GLYCOPYRROLATE 0.2 MG/ML SYR ONE (11:27)
[2022-03-20] MEDS ORDERED: FENTANYL CITR 100 MCG/2 ML ONE (11:48)
[2022-03-20] MEDS: FENTANYL CITR 100 MCG/2 ML ONE ×2 (11:49→12:09)
[2022-03-20] MEDS: MEPERIDINE HCL 25 MG/ML SYR ONE ×2 (12:14→12:20)
--- NOTE | 2022-03-20 12:30 | P.BOP ---
Preoperative diagnosis: suprapubic abscess Postoperative diagnosis: same Primary procedure: I&D suprapubic abscess with excisional subQ debridement [id number] Estimated blood loss: <10cc Specimen: pus culture Anesthesia: General Complications: None Drain(s): Other (packing) Transferred to: Recovery Room Condition: Good
[2022-03-20 14:28] VITALS: BP 143/72; TEMP 96.2; O2SAT 99
--- NOTE | 2022-03-21 15:46 | DS ---
Date of Discharge: 03/20/2022 Diagnosis: Suprapubic abscess and necrotic tissue. Procedure: Incision and drainage of suprapubic abscess and excisional subcutaneous debridement of th e suprapubic area about 4 x 4 x 1 cm. Disposition: Home. Packing: Wet-to-dry dressing. Normal saline daily. ELIZABETH/ABRAHAM Voice ID: [id number] Report ID: [id number]
--- NOTE | 2022-03-21 15:46 | OP ---
Date of Procedure: 03/20/2022 Surgeon: Devan Hodges MD Preoperative Diagnosis: Suprapubic abscess. Postoperative Diagnosis: Suprapubic abscess. Procedure: Incision and drainage of suprapubic abscess with excisional subcutaneous debridement of n ecrotic wound 4 x 4 x 1 cm. Estimated Blood Loss: Less than 10 mL. Specimen: Pus and culture. Anesthesia: General plus local. Packing: Wet-to-dry. Indication: This is the case of a female, who comes to us with an infected area on the suprapubic ar ea. She has history of major debridement. At one point, she claimed she had Bruna gangrene of th e abdomen. She has multiple infections on this abdomen and also suprapubic area. At this time, she has erythema present. She is trying over the last week p.o. antibiotics did not even do anything, it just got worse, so she asked me to once again debride that area. It is a different area from the pr evious one. When she failed outpatient p.o. antibiotics, so we put care for debridement. She does n ot want to be done in the office, she does not want to do with local anesthetic, she wants to be asle ep. So, we booked her in the OR. The area of concern was marked by me and the patient in the [facility] g room. Procedure In Detail: The patient was brought to the operating room, placed in supine position. Anes thesia was done without complication. Abdominal area was prepped and draped in the usual sterile fas hion that includes suprapubic region. A time-out was called followed by a local anesthetic injection followed by an exploration of the wound itself. We noticed the patient to have an abscess in that r egion, but also has necrotic tissue to the point that it is about 4 x 4 x 1 cm. Once we explored eligio t, we removed the necrotic tissue, exposed the abscess and opened the loculations and then irrigated the area, obtained hemostasis and packed the area with wet-to-dry dressing. The patient tolerated th e procedure well. The patient was sent to recovery in stable condition. ELIZABETH/ABRAHAM Voice ID: [id number] Report ID: [id number]
== END 2022-03-20 13:01 | disposition home or self-care (01) ==
LOC: OR 08:40
PROVIDERS: ATTEND Surgery
PROC: 0JBC0ZZ Excision of Pelvic Region Subcutaneous Tissue and Fascia, Open Approach (ICD-10-PCS; principal; 2022-03-20 12:00)
DX: K65.1 Peritoneal abscess (principal); I96 Gangrene, not elsewhere classified; E11.9 Type 2 diabetes mellitus without complications; E66.9 Obesity, unspecified; G47.33 Obstructive sleep apnea (adult) (pediatric)
CPT/HCPCS: 87070; 85025; 80048; 36415; 87205 ×2; 82947; 88304; 87075; 87077; 87186; 11042; J2704; J2001; J2250; J3010 ×2; J2175; J7120; J2405 ×2; J0744

== ENCOUNTER → 2022-12-04 | Day surgery (SDC) | payer OTHER ==
[2022-12-03 14:48] LABS: Potassium 4.3 mEq/L (3.5-5.1)
[2022-12-03 14:54] LABS: Absolute Lymphocytes (CBC) 2.2 K/uL (0.7-4.9); Hematocrit 41.6 % (36.0-45.0); Lymphocytes % 24.6 % (15.3-44.8); MCV 88.8 fL (80-100); RBC Red Blood Cell Count 4.69 M/uL (3.86-4.86)
[~2022-12-04] MED LIST: CEFAZOLIN SODIUM 1 GM/VIAL ONE; CEFAZOLIN SODIUM 2 GM/VIAL ONE; DIPHENHYDRAMINE 50 MG/ML VIAL ONE; FENTANYL CITR 100 MCG/2 ML ONE; GLYCOPYRROLATE 0.2 MG/ML SYR ONE; KETOROLAC 30 MG/ML INJ ONE; LIDOCAINE 2% MPF 5 ML VIAL ONE; MIDAZOLAM HCL 2 MG/2 ML INJ ONE; NA CHLORIDE 0.9% 1,000 ML ONE; ONDANSETRON 4 MG/2 ML VIAL ONE; Ringers Lactate 0 ML IV ONE; Ringers Lactate 1,000 ML IV ONE; propofoL 200 MG/20 ML VIAL IV ONE
--- NOTE | 2022-12-04 08:06 | P.BOP ---
Preoperative diagnosis: left groin infected subQ mass, hx of fornier gangrene, IDDM Postoperative diagnosis: same Primary procedure: Excisional biopsy of left groin infected subQ mass [id number] Estimated blood loss: <10cc Specimen: mass, pus culture Findings: mass with abscess Anesthesia: General Complications: None Transferred to: Recovery Room Condition: Good
[2022-12-04 09:08] VITALS: O2SAT 100
[2022-12-04 11:53] VITALS: BP 108/54; TEMP 97.1
--- NOTE | 2022-12-04 12:38 | OP ---
Date of Procedure: 12/04/2022 Surgeon: Devan Hodges MD Preoperative Diagnoses: Left groin infected subcutaneous mass, history of Bruna gangrene, insulin -dependent diabetes. Postoperative Diagnoses: Left groin infected subcutaneous mass, history of Bruna gangrene, insuli n-dependent diabetes. Procedure: Excisional biopsy of left groin infected subcutaneous mass, 3 x 3 x 2 cm. Specimen: Mass. Finding: Mass with abscess. Anesthesia: General plus local. Indication: This is the case of a female, who comes to us with an infected mass. She was always con cerned about it because she has history of Bruna gangrene almost taking her life at least. She me ntioned that few years ago or so. In the last few years every time she sees the mass in that area th at she believe may be infected, she comes to us and indeed this time she comes and by the time we see her in the office and today it is already increased in infection, so she wants that excised. The be nefits, alternatives, and risks of excision fully explained to the patient, which include, but not li mited to infection, bleeding, damage to adjacent structures, anesthesia complication, recurrence, [place], and even . She also understands this may not relieve any symptoms. She might need more than o ne surgical intervention. She would require wound care. Procedure In Detail: The patient was brought to the operating room, placed in supine position. Anes thesia was done without complication. The area of concern was previously marked by me and the patien t in the holding room. The left groin area was prepped and draped in the usual sterile fashion. Loc al anesthesia was applied followed by a wedge incision of the skin. Then, we removed the mass and pu s inside have to be cultured. The area was completely excised and then hemostasis was obtained and l eft to close by secondary intent with the help of a gauze. Local anesthetic was applied over that ar ea. The patient sent to recovery in stable condition. ELIZABETH/SUHAILL Voice ID: [id number] Report ID: [id number]
--- NOTE | 2022-12-04 12:44 | DS ---
Diagnoses: Infected left groin subcutaneous. Procedure: Excisional biopsy of the infected left groin subcutaneous mass. Disposition: Home. Activity: As tolerated. No heavy lifting. Plan: Follow up in my office in 1 week. Call for appointment at [phone]. Wet-to-dry dressing and normal saline daily. ELIZABETH/ABRAHAM Voice ID: [id number] Report ID: [id number]
== END | disposition home or self-care (01) ==
LOC: OR 06:13
PROVIDERS: ATTEND Surgery
PROC: 0YB60ZZ Excision of Left Inguinal Region, Open Approach (ICD-10-PCS; principal; 2022-12-04 07:30)
DX: L72.0 Epidermal cyst (principal); L02.214 Cutaneous abscess of groin; E11.9 Type 2 diabetes mellitus without complications; L08.9 Local infection of the skin and subcutaneous tissue, unspecified
CPT/HCPCS: 11403; 87070; 85025; 80048; 36415; 87205; 82947; 88304; 87075; J2704; J1200; J2001; J2250; J3010; J2405; J7120; J7030; J0690

== ENCOUNTER 2023-06-04 08:35 | Day surgery (SDC) | payer OTHER ==
[2023-06-04 08:37] LABS: Absolute Lymphocytes (CBC) 1.7 K/uL (0.7-4.9); Hematocrit 42.2 % (36.0-45.0); Lymphocytes % 19.2 % (15.3-44.8); MCV 90.5 fL (80-100); MPV 7.8 fL (7.6-11.3); Platelets 219 thou/uL (152-406); RBC Red Blood Cell Count 4.66 M/uL (3.86-4.86)
--- NOTE | 2023-06-04 09:00 | RAD REPORT ---
EXAM DESCRIPTION: RAD - Chest Pa And Lat (2 Views) - 06/04/2023 8:35 am CLINICAL HISTORY: Pre op pending SQ mass removals COMPARISON: Chest Single View dated 09/08/2022; Chest Pa And Lat (2 Views) dated 11/12/2021; Chest Pa And Lat (2 Views) dated 07/18/2020; Chest Pa And Lat (2 Views) dated 01/11/2019 TECHNIQUE: PA and lateral views of the chest were obtained. FINDINGS: The lungs are clear. Bilateral lower lung linear atelectasis. Heart size is normal and carlos tral vasculature is within normal limits. No pleural effusion or pneumothorax seen. No acute bony fin ding noted. IMPRESSION: No acute cardiopulmonary process.
[2023-06-04 09:06] LABS: Potassium 4.7 mEq/L (3.5-5.1)
[2023-06-04] MEDS ORDERED: ONDANSETRON 4 MG/2 ML VIAL ONE ×2 (09:23→10:35)
[2023-06-04] MEDS ORDERED: propofoL 200 MG/20 ML VIAL IV ONE (09:24)
[2023-06-04] MEDS ORDERED: FENTANYL CITR 100 MCG/2 ML ONE (09:24)
[2023-06-04] MEDS ORDERED: MIDAZOLAM HCL 2 MG/2 ML INJ ONE (09:25)
[2023-06-04] MEDS ORDERED: LIDOCAINE 2% MPF 5 ML VIAL ONE (09:25)
[2023-06-04] MEDS ORDERED: GLYCOPYRROLATE 0.2 MG/ML SYR ONE (10:50)
[2023-06-04] MEDS ORDERED: EPHEDRINE SULF 50 MG/ML VIAL ONE (10:51)
[2023-06-04] MEDS ORDERED: Phenylephrine HCl 10 MG/ML 1 ML VIAL ONE (11:06)
--- NOTE | 2023-06-04 11:18 | P.BOP ---
Preoperative diagnosis: infected R perineal and L suprapubic subQ masses, hx bela gangrene Postoperative diagnosis: same Primary procedure: 1. Excisional biopsy of infected Right perineal subQ mass 4x3cm Secondary procedure: 2. Excisional biopsy of infected Left suprapubic subQ mass 3x3cm Estimated blood loss: <10cc Specimen: masses x 2 Findings: see dicta Anesthesia: General Complications: None Drain(s): Other Transferred to: Recovery Room Condition: Good
[2023-06-04] MEDS: HYDROMORPHONE HCL 1 MG/ML INJ ONE ×2 (11:40→11:45)
[2023-06-04] MEDS: DIPHENHYDRAMINE 50 MG/ML VIAL ONE ×2 (11:55→12:00)
--- NOTE | 2023-06-04 11:58 | OP ---
Date of Procedure: 06/04/2023 Surgeon: Devan Hodges MD Preoperative Diagnoses: Infected right perineal and left suprapubic subcutaneous masses, history of Bruna gangrene. Postoperative Diagnoses: Infected right perineal and left suprapubic subcutaneous masses, history of Bruna gangrene. Procedures: 1.Excisional biopsy of infected right perineal subcutaneous mass 4 x 3 cm. 2.Excisional biopsy of infected left suprapubic subcutaneous mass 3 x 3 cm. Estimated Blood Loss: Less than 10 mL. Specimen: Masses x2. Anesthesia: General plus local. Indication: This is the case of a 63-year-old patient, known by us due to multiple abscess in the mcwilliams prapubic perineal area to the point that many years ago, she also have history of Bruna gangrene. Obviously, she comes over here with 2 new areas that are red and increasing in size, no pus yet. Curtis lam wants them excised because she understand her previous trauma. The benefits, alternatives, and ris ks of excisional biopsy of those areas fully explained, which include, but not limited to infection, bleeding, damage to adjacent structures, anesthesia complication, recurrence, [place], and even . Curtis lam also understands this may not relieve symptoms. This may require more than 1 surgical intervention . This may require wound care. She is flying out of state in the next few days. She was advised to find a surgeon in that region or a medical doctor who will evaluate her at least in a week or come b ack to this area so we can see her. She understood she still want to have it done now in this instit ution. She signed a consent. The area of concern was marked by me and the patient in the holding ro om. Description Of Procedure: The patient was brought to the operating room and placed in supine positio n. Anesthesia was done without complication. The patient was placed in frog leg position with prope r protection. Perineal and suprapubic areas were prepped and draped in usual sterile fashion. A sharonda e-out was called. Local anesthetic was applied followed by sharp incision on the skin with a sharp k nife. We did the right side first. Incision was carried down to deep subcutaneous tissue. Mass was excised. The area was irrigated. I did not see any pus in that area. So, we irrigated the area pr ofusely and then after that closed the deep tissue with 3-0 chromic and then the dermis with 3-0 packing machine feeder abner and left the skin to close by secondary intention with triple antibiotics on top of the gauze. Tisha zayas, we moved to the left side. This is in the suprapubic area. Once again, we applied local anesth etic and made a wedge incision. This is more superficial on the right side, but still down to subcut aneous tissue. Mass was excised. The area was approximated with 3-0 chromic interrupted multiple ti mes as the other side. The skin was left to close by secondary intention with triple antibiotics on top. The patient tolerated the procedure well. Sponge count and instrument counts correct. Local a nesthesia was applied before opening and hemostasis was obtained at all time. The patient tolerated the procedure well. The patient on the way to recovery in stable condition. ELIZABETH/ABRAHAM Voice ID: [id number] Report ID: [id number]
--- NOTE | 2023-06-04 11:58 | DS ---
Diagnosis: Infected right perineal and left suprapubic subcutaneous masses. Procedure: Excisional biopsy of infected right perineal and left suprapubic subcutaneous masses. Disposition: Home. Activity: As tolerated. No heavy lifting. Follow up in my office in 1 week. Call for appointment at [phone]. If she goes and fly out of town, she was advised once again to look for medical attenti on in a week from now and she promised she will do that. We prescribed the antibiotics and the pain medication for her. ELIZABETH/ABRAHAM Voice ID: [id number] Report ID: [id number]
[2023-06-04] MEDS ORDERED: HYDROCODONE/APAP 7.5/325 MG TAB ONE (12:13)
[2023-06-04 14:34] VITALS: BP 118/60; TEMP 97; O2SAT 100
--- NOTE | 2023-06-04 17:33 | EKG ---
Test Date: 2023-06-04 Test Time: 09:17:45 Fisher Scallop: TABBY MEASUREMENT RESULTS: Intervals: Rate: 66 FL: 140 QRSD: 68 QT: 386 QTc: 404 [place]: P: 71 FL: 140 QRS: 53 T: 69 INTERPRETIVE STATEMENTS: Sinus rhythm with premature atrial complexes Low voltage QRS Borderline ECG Compared to ECG 09/08/2022 14:04:16 Atrial premature complex(es) now present Electronically Signed On 06-04-23 17:32:57 CORRECTIONAL CAPTAIN by Tyrone Mijares
== END 2023-06-04 12:38 | disposition home or self-care (01) ==
LOC: OR 08:35
PROVIDERS: ATTEND Surgery
PROC: 0JBC0ZZ Excision of Pelvic Region Subcutaneous Tissue and Fascia, Open Approach (ICD-10-PCS; 2023-06-04)
PROC: 0WBN0ZZ Excision of Female Perineum, Open Approach (ICD-10-PCS; principal; 2023-06-04 10:00)
DX: L72.0 Epidermal cyst (principal)
CPT/HCPCS: 93005; 85025; 80048; 36415; 88304; 71046; 11424; 11403; J2704; J1200; J2371; J2001; J2250; J3010; J1170; J2405 ×2